=== PATIENT | female | born 1995 | race Caucasian/White ===

== ENCOUNTER → 2018-07-31 | Outpatient (CLI) | payer BC ==
[2018-07-31 11:43] LABS: Anisocytosis Slight; HCT 33.7 % (34.0-46.0); HGB 10.6 gm/dL (11.4-16.0); Hypochromasia Moderate; MCH 24.2 pg (25.0-35.0); MCHC 31.4 g/dL (31.0-37.0); MCV 77.1 fL (80.0-100.0); Mean Platelet Volume 6.8; Microcytosis Slight; Platelet Count 271 k/uL (150-450); RBC 4.37 m/uL (3.80-5.40); RDW 17.3 % (11.5-15.5); WBC 14.5 k/uL (3.8-10.6)
== END | disposition home or self-care (01) ==
LOC: LABWHC1 10:19
PROVIDERS: ATTEND Obstetrics & Gynecology
DX: Z34.82 Encounter for supervision of other normal pregnancy, second trimester (principal)
CPT/HCPCS: 36415; 82950; 85027; 86850; 86900; 86901

== ENCOUNTER 2018-09-30 16:20 | Outpatient (CLI) | payer BC ==
[2018-09-30 17:31] LABS: Anisocytosis Slight; Basophils % (A) 0 %; Eosinophils # (A) 0.2 k/uL (0-0.7); Eosinophils % (A) 1 %; HCT 32.3 % (34.0-46.0); HGB 10.2 gm/dL (11.4-16.0); Hypochromasia Slight; Lymphocytes # (A) 2.1 k/uL (1.0-4.8); Lymphocytes % (A) 15 %; MCH 24.4 pg (25.0-35.0); MCHC 31.7 g/dL (31.0-37.0); MCV 77.2 fL (80.0-100.0); Mean Platelet Volume 8.3; Microcytosis Slight; Monocytes # (A) 0.6 k/uL (0-1.0); Monocytes % (A) 4 %; Neutrophils # (A) 11.3 k/uL (1.3-7.7); Neutrophils % (A) 79 %; Platelet Count 238 k/uL (150-450); RBC 4.19 m/uL (3.80-5.40); RDW 17.3 % (11.5-15.5); WBC 14.4 k/uL (3.8-10.6)
[2018-09-30 17:35] LABS: Appearance,Urine Clear (Clear); Bacteria,Urine Rare /hpf; Bilirubin,Urine Negative (Negative); Blood,Urine Negative (Negative); Color,Urine Yellow; Glucose,Urine (UA) Negative (Negative); Ketones,Urine Negative (Negative); Leukocyte Esterase,Urine Moderate (Negative); Mucus,Urine Occasional /hpf; Nitrite,Urine Negative (Negative); Protein,Urine Trace (Negative); RBC,Urine 4 /hpf (0-5); Specific Gravity,Urine 1.028 (1.001-1.035); Squamous Epithelial Cell,Urine 3 /hpf (0-4); Urobilinogen,Urine <2.0 mg/dL (<2.0); WBC,Urine 6 /hpf (0-5)
[2018-09-30 17:43] LABS: ALT 17 U/L (9-52); AST 13 U/L (14-36); Blood Urea Nitrogen 9 mg/dL (7-17); LDH 399 U/L (313-618); Uric Acid 5.1 mg/dL (3.7-7.4)
[2018-09-30 17:50] VITALS: BP 126/77; PULSE 78; RESP 16; TEMP 97.6
--- NOTE | 2018-09-30 20:15 | P.MSEPDOC ---
Presenting Problems - Arrival Data Date of Arrival on Unit: 09/30/18 Time of Arrival on Unit: 16:16 Mode of Transport: Ambulatory - Complaint OB-Reason for Admission/Chief Complaint: PIH Medical History - Information : 2 Number of Living Children: 1 - Gestational Age Gestational Age by TRES (wks/days): 34 Weeks and 5 Days Review of Systems - Review of Systems Constitutional: No problems Breast: No problems ENT: No problems Cardiovascular: No problems Respiratory: No problems Gastrointestinal: No problems Genitourinary: No problems Musculoskeletal: No problems Neurological: No problems Skin: No problems Vital Signs - Temperature Temperature: 97.6 F Temperature Source: Temporal Artery Scan - Pulse Right Sitting Brachial Pulse Rate: 78 Pulse Assessment Method: Auscultation - Respirations Respiratory Rate: 16 Oxygen Delivery Method: Room Air - Blood Pressure Right Arm Sitting Blood Pressure: 126/77 Blood Pressure Mean: 93 Blood Pressure Source: Automatic Cuff Medical Screen Scoring (Pre) - Cervical Exam Dilation: Exam Deferred Effacement: Exam Deferred - Uterine Contractions Frequency: N/A Duration: N/A Intensity: N/A - Maternal Vital Signs Maternal Temperature: N/A Maternal Blood Pressure: N/A Signs of Preeclampsia: Headache = 1 Maternal Respirations: N/A - Pain Assessment Pain Scale Used: Numeric (1 - 10) Pain Intensity: 0 - Maternal Trauma Maternal Trauma: N/A - Assessment Baseline FHR: 130 Heart Rate - NICHD Category: Category I (Normal) = 0 NST: Reactive Position: N/A Station: N/A - Total Score Total Score (Pre): 1 - Level of Risk Level of Risk: Low (0-5) Physician Notification (Pre) - Physician Notified Physician Notified Date: 09/30/18 Physician Notified Time: 17:00 Physician/Practitioner Notifed:: dr tan Spoke With: Dr Tan New Order Received: Yes (if all lab work wnl, bp wnl, pt may be discharged home) Disposition - Disposition OB Disposition: Discharge to home Discharge Date: 09/30/18 Discharge Time: 17:50 I agree with the RN Medical Screening Exam: Yes Risk & Benefit of care provided described in d/c instruction: Yes Diagnosis: GESTATIONAL HTN W/O SIGNIFICANT PROTEINURIA, THIRD TRIMESTER (patient had an elevated blood pressure 140/90 the office. Blood pressures here have been normal and her preeclampsia labs have been normal as well with the random urine protein to creatinine ratio of 0.05. heart tones are category 1. There is no evidence of maternal or compromise and therefore the patient will be sent home follow up with me Thursday for repeat blood pressure check and nonstress test.)
== END 2018-09-30 17:50 | disposition home or self-care (01) ==
LOC: FBPOP 16:20
PROVIDERS: ATTEND Obstetrics & Gynecology
DX: O13.3 Gestational [pregnancy-induced] hypertension without significant proteinuria, third trimester (principal); Z3A.34 34 weeks gestation of pregnancy
CPT/HCPCS: 59025; 81001; 82565; 82570; 83615; 84156; 84450; 84460; 84520; 84550; 85025; 99215

== ENCOUNTER 2018-11-07 14:18 | Inpatient (IN) | payer BC ==
[2018-11-07 15:24] LABS: Anisocytosis Slight; Basophils # (A) 0.1 k/uL (0-0.2); Basophils % (A) 0 %; Eosinophils # (A) 0.3 k/uL (0-0.7); Eosinophils % (A) 2 %; HCT 36.2 % (34.0-46.0); HGB 11.1 gm/dL (11.4-16.0); Hypochromasia Moderate; Lymphocytes # (A) 2.5 k/uL (1.0-4.8); Lymphocytes % (A) 17 %; MCH 23.9 pg (25.0-35.0); MCHC 30.7 g/dL (31.0-37.0); MCV 77.8 fL (80.0-100.0); Microcytosis Slight; Monocytes # (A) 0.6 k/uL (0-1.0); Monocytes % (A) 4 %; Neutrophils # (A) 11.3 k/uL (1.3-7.7); Neutrophils % (A) 75 %; Platelet Count 210 k/uL (150-450); RBC 4.65 m/uL (3.80-5.40)
[2018-11-07 15:31] LABS: ALT 9 U/L (9-52); AST 19 U/L (14-36); African American GFR (CKD) >90 (>60 ml/min/1.73 sqM); Appearance,Urine Clear (Clear); Bacteria,Urine Rare /hpf; Bilirubin,Urine Negative (Negative); Blood Urea Nitrogen 14 mg/dL (7-17); Blood,Urine Small (Negative); Color,Urine Yellow; Glucose,Urine (UA) Negative (Negative); Ketones,Urine Negative (Negative); LDH 551 U/L (313-618); Leukocyte Esterase,Urine Trace (Negative); Mucus,Urine Rare /hpf; Nitrite,Urine Negative (Negative); Protein,Urine Trace (Negative); RBC,Urine 2 /hpf (0-5); Specific Gravity,Urine 1.027 (1.001-1.035); Squamous Epithelial Cell,Urine 2 /hpf (0-4); Uric Acid 5.7 mg/dL (3.7-7.4); Urobilinogen,Urine <2.0 mg/dL (<2.0); WBC,Urine 4 /hpf (0-5)
[2018-11-07] MEDS ORDERED: ceFAZolin IN SWFI 2 GM/20 ML SYRINGE IVP ONE (15:47)
[2018-11-07] MEDS ORDERED: CITRIC ACID-SODIUM CITRATE 15 ML CUP PO ONE (15:47)
--- NOTE | 2018-11-07 15:57 | P.HPOB ---
History of Present Illness H&P Date: 11/07/18 Chief Complaint: gestational hypertension 23 year old presents at 40 weeks 1 day complaining of headache and contractions. She is li irregularly. cervix is closed, thick, -3. heart tones 140's moderate variability and accelerations. HEr BP is 130-170/90-100. She had one previous increased BP in the . Her pre- eclamptic labs were wnl. She has gestational hypertension and is consented for repeat . Review of Systems All systems: negative Constitutional: Denies chills, Denies fever Eyes: denies blurred vision, denies pain Ears, nose, mouth and throat: Denies headache, Denies sore throat Cardiovascular: Denies chest pain, Denies shortness of breath Respiratory: Denies cough Gastrointestinal: Denies abdominal pain, Denies diarrhea, Denies nausea, Denies vomiting Genitourinary: Denies dysuria, Denies hematuria Musculoskeletal: Denies myalgias Integumentary: Denies pruritus, Denies rash Neurological: Denies numbness, Denies weakness Psychiatric: Denies anxiety, Denies depression Endocrine: Denies fatigue, Denies weight change Past Medical History Past Medical History: No Reported History Additional Past Medical History / Comment(s): OB history: first was a for failure of induction for pre-eclampsia at 37 weeks 5 days. This is her second and she has had care with DR Tan. O+, abs neg, Rub Imm, RPR NR, Hep B neg, HIV NR. GBS neg. History of Any Multi-Drug Resistant Organisms: None Reported Past Surgical History: Section Past Anesthesia/Blood Transfusion Reactions: No Reported Reaction Smoking Status: Never smoker - Past Family History Mother Family Medical History: No Reported History Medications and Allergies Home Medications Medication Instructions Recorded Confirmed Type Ferrous Sulfate [Iron] 325 mg PO DAILY 09/30/18 11/07/18 History Pnv No.95/Ferrous Fum/Folic AC 1 each PO DAILY 09/30/18 11/07/18 History [ Multivitamin Tablet] Allergies Allergy/AdvReac Type Severity Reaction Status Date / Time No Known Allergies Allergy Verified 11/07/18 14:34 Exam Osteopathic Statement: *. No significant issues noted on an osteopathic structural exam other than those noted in the History and Physical/Consult. Vital Signs Temp Pulse Resp BP 11/07/18 14:57 97.1 F L 74 16 141/100 Intake and Output 11/07/18 11/07/18 11/07/18 06:59 14:59 22:59 Other: Weight 88.133 kg HEart: RRR Lungs: CTAB Abdomen: soft, nontender Extremeties: neg lita's Results Result Diagrams: 11/07/18 15:13 11/07/18 15:13 Abnormal Lab Results - Last 24 Hours (Table) 11/07/18 11/07/18 11/07/18 Range/Units 15:13 15:13 15:13 WBC 15.0 H (3.8-10.6) k/uL Hgb 11.1 L (11.4-16.0) gm/dL MCV 77.8 L (80.0-100.0) fL MCH 23.9 L (25.0-35.0) pg MCHC 30.7 L (31.0-37.0) g/dL RDW 18.0 H (11.5-15.5) % Neutrophils # 11.3 H (1.3-7.7) k/uL Creatinine 0.45 L (0.52-1.04) mg/dL Urine Protein Trace H (Negative) Urine Blood Small H (Negative) Ur Leukocyte Esterase Trace H (Negative) Urine Bacteria Rare H (None) /hpf Urine Mucus Rare H (None) /hpf Assessment and Plan (1) Gestational hypertension Current Visit: Yes Status: Acute Code(s): O13.9 - GESTATIONAL HTN W/O SIGNIFICANT PROTEINURIA, UNSP TRIMESTER SNOMED Code(s): 724882491 (2) History of pre-eclampsia in prior , currently Current Visit: Yes Status: Acute Code(s): O09.299 - SUPRVSN OF PREG W POOR REPRODCTV OR OBSTET HISTORY, UNSP TRI SNOMED Code(s): 878059136998813 (3) Postmaturity , 40-42 weeks gestation Current Visit: Yes Status: Acute Code(s): O48.0 - POST-TERM SNOMED Code(s): 55633764852617 Plan: 1. repeat low transverse
--- NOTE | 2018-11-07 15:58 | P.MSEPDOC ---
Presenting Problems - Arrival Data Date of Arrival on Unit: 11/07/18 Time of Arrival on Unit: 14:18 Mode of Transport: Ambulatory - Complaint OB-Reason for Admission/Chief Complaint: Possible Onset of Labor Medical History - Information : 2 Para: 1 Term: 1 : 0 Abortions: Spontaneous or Elective: 0 Number of Living Children: 1 - Gestational Age Gestational Age by TRES (wks/days): 40 Weeks and 1 Days - History Complications: Prior Comment: hx of preeclampsia with previous delivery Review of Systems - Review of Systems Constitutional: No problems Breast: No problems ENT: No problems Cardiovascular: No problems Respiratory: No problems Gastrointestinal: No problems Genitourinary: No problems Musculoskeletal: No problems Neurological: No problems Skin: No problems Vital Signs - Temperature Temperature: 97.1 F Temperature Source: Temporal Artery Scan - Pulse Right Sitting Pulse Rate: 74 Pulse Assessment Method: Automatic Cuff - Respirations Respiratory Rate: 16 Oxygen Delivery Method: Room Air - Blood Pressure Right Arm Blood Pressure: 141/100 Blood Pressure Mean: 113 Blood Pressure Source: Automatic Cuff Medical Screen Scoring (Pre) - Cervical Exam Dilation: Exam Deferred Effacement: Exam Deferred Membranes: Intact - Uterine Contractions Frequency: > 5 minutes apart = 1 Duration: > 40 seconds = 2 Intensity: N/A - Maternal Vital Signs Maternal Temperature: N/A Maternal Blood Pressure: Systolic >139 = 2 Signs of Preeclampsia: Headache = 1 Maternal Respirations: N/A - Maternal Trauma Maternal Trauma: N/A - Assessment - Baby A Baseline FHR: 120 Heart Rate - NICHD Category: Category I (Normal) = 0 NST: Reactive Position: N/A Station: N/A - Total Score - Baby A Total Score - Baby A: 6 - Total Score - Baby B Total Score - Baby B: 6 - Total Score - Baby C Total Score - Baby C: 6 - Level of Risk - Baby A Level of Risk - Baby A: Medium (6-9) - Level of Risk - Baby B Level of Risk - Baby B: Medium (6-9) - Level of Risk - Baby C Level of Risk - Baby C: Medium (6-9) Physician Notification (Pre) - Physician Notified Physician Notified Date: 11/07/18 Physician Notified Time: 14:57 Physician/Practitioner Notifed:: Doug Ruby Order Received: Yes (ASHLYN núñez) Disposition - Disposition OB Disposition: Admit I agree with the RN Medical Screening Exam: Yes Risk & Benefit of care provided described in d/c instruction: Yes Diagnosis: GESTATIONAL HTN W/O SIGNIFICANT PROTEINURIA, THIRD TRIMESTER
[2018-11-07 16:03] LABS: INR 0.9 (<1.2); Partial Thromboplastin Time 22.9 sec (22.0-30.0); Prothrombin Time 9.4 sec (9.0-12.0)
[2018-11-07] MEDS: LACTATED RINGERS 1,000 ML IV SCH (16:22)
[2018-11-07 16:40] VITALS: BMI 42.0
[2018-11-07] MEDS ORDERED: OXYTOCIN 10 UNIT/ML 1 ML VIAL ONE (16:45)
[2018-11-07] MEDS ORDERED: MORPHINE SULFATE (PF) 0.3 MG/0.3 ML SYR ONE (16:45)
[2018-11-07] MEDS ORDERED: fentaNYL (PF) 50 MCG/ML 2 ML AMP ONE (16:45)
[2018-11-07] MEDS ORDERED: ONDANSETRON 4 MG/2 ML VIAL ONE (16:45)
[2018-11-07] MEDS ORDERED: KETOROLAC 30 MG/ML 1 ML VIAL ONE (16:45)
[2018-11-07] MEDS ORDERED: METOCLOPRAMIDE 5 MG/ML 2 ML VIAL IVP PRN (17:26)
[2018-11-07] MEDS ORDERED: NALOXONE 0.4 MG/ML 1 ML VIAL IV PRN (17:26)
[2018-11-07] MEDS ORDERED: ONDANSETRON 4 MG/2 ML VIAL IVP PRN (17:26)
[2018-11-07] MEDS ORDERED: ZOLPIDEM 5 MG TAB PO PRN (17:26)
[2018-11-07] MEDS ORDERED: diphenhydrAMINE 25 MG CAP PO PRN (17:26)
[2018-11-07] MEDS ORDERED: ACETAMINOPHEN TAB 325 MG TAB PO PRN (17:26)
[2018-11-07] MEDS ORDERED: diphenhydrAMINE 50 MG CAP PO PRN (17:26)
[2018-11-07] MEDS ORDERED: LANOLIN CREAM 5 GM TUBE TOPICAL PRN (17:26)
[2018-11-07] MEDS ORDERED: diphenhydrAMINE 50 MG/ML 1 ML VIAL IVP PRN (17:26)
[2018-11-07] MEDS ORDERED: SIMETHICONE 80 MG CHEWABLE PO PRN (17:26)
--- NOTE | 2018-11-07 17:29 | P.OP ---
Date of Procedure: 11/07/18 Preoperative Diagnosis: 1. at 40 weeks 1 day 2. gestational hypertension 3. previous Postoperative Diagnosis: 1. at 40 weeks 1 day 2. gestational hypertension 3. previous Procedure(s) Performed: repeat low transverse Anesthesia: spinal Surgeon: Génesis Camacho Temporary Receptionist #1: Jaky Patino Estimated Blood Loss (ml): 400 IV fluids (ml): 600 Urine output (ml): 150 Pathology: other (placenta) Condition: stable Disposition: floor Operative Findings: Viable female, Apgars 8, 9, weight 5 lbs. 10 oz. Normal uterus, tubes, ovaries. Description of Procedure: Patient was taken to the operating room where spinal anesthesia was found be adequate. She was prepped and draped in normal sterile fashion in dorsal supine position with a leftward tilt. Pfannenstiel skin incision was made the scalpel and carried through to the underlying layer of fascia with the scalpel. Fascia was incised in midline and carried bilaterally with the Morgan scissors. The superior aspect of the fascial incision was grasped with Franny clamps elevated and the underlying rectus muscles dissected off with the Morgan's. Attention was then turned to inferior aspect of same incision which in a similar fashion was grasped tented up and the underlying rectus muscles dissected off with the Morgan's. The rectus muscles were the midline and the peritoneum was i dentified tented up and entered sharply with the scalpel. The incision was extended superiorly and inferiorly with good visualization of the bladder. The bladder blade was inserted and the vesicouterine peritoneum was incised the Metzenbaums then carried bilaterally and bladder flap created digitally. A low transverse incision was then made on the uterus with the scalpel. This was carried bilaterally and digital manner. Infant's head delivered atraumatically, nose and mouth bulb suctioned, cord clamped and cut, infant handed off to waiting nurses. Apgars 8,9, weight 5 lbs. 10 oz. Placenta delivered manually, intact with three-vessel cord. The uterus is exteriorized and cleared of all clots and debris. The uterine incision was closed with 0 Vicryl in a running locked fashion. Second layer of the same sutures used in imbricating fashion to obtain excellent hemostasis. Bladder flap was then reapproximated using 2-0 Vicryl in a running fashion. Both ovaries and tubes appeared normal. The uterus was placed back into the abdomen. The peritoneum was reapproximated using 2-0 Vicryl in a running fashion. The muscles were reapproximated using 2- 0 Vicryl in interrupted fashion. The fascia was reapproximated using 0 Vicryl in a running fashion. The subcutaneous tissues closed with 3-0 Vicryl running fashion. The skin was closed tony. Patient tolerated the procedure well, sponge and instrument counts were correct times 2 and she was taken to the recovery room in stable condition.
[2018-11-07] MEDS ORDERED: OXYTOCIN 20 UNITS/1000 ML NS 1,000 ML IV SCH (17:30)
[2018-11-07] MEDS: diphenhydrAMINE 50 MG/ML 1 ML VIAL IVP PRN (21:09)
[2018-11-07] MEDS: SENNOSIDES-DOCUSATE SODIUM 1 EACH TAB PO SCH (22:44)
[2018-11-08] MEDS: LACTATED RINGERS 1,000 ML IV SCH (01:00)
[2018-11-08] MEDS: KETOROLAC 30 MG/ML 1 ML VIAL IVP PRN ×4 (02:29→21:22)
[2018-11-08] MEDS: diphenhydrAMINE 50 MG/ML 1 ML VIAL IVP PRN (03:50)
--- NOTE | 2018-11-08 06:13 | P.PNOBGPC ---
Subjective - Subjective Patient reports: Reports appetite normal, Reports voiding normally, Reports pain well controlled, Reports ambulating normally : doing well Objective - Vital Signs Latest vital signs: Vital Signs Temp Pulse Resp BP Pulse Ox 11/08/18 03:52 97.6 F 87 16 152/96 98 11/08/18 00:00 97.7 F 62 16 132/85 97 11/07/18 19:31 97.1 F L 63 16 149/86 98 11/07/18 19:00 57 L 16 161/96 99 11/07/18 18:31 63 16 157/94 99 11/07/18 18:16 60 16 153/91 98 11/07/18 18:01 60 16 127/79 97 11/07/18 17:46 64 16 128/81 98 11/07/18 17:31 97.3 F L 68 16 123/75 96 11/07/18 15:57 97.1 F L 74 16 141/100 11/07/18 14:57 97.1 F L 74 16 141/100 Intake and Output 11/07/18 11/07/18 11/08/18 14:59 22:59 06:59 Output Total 1500 Balance -1500 Output: Urine 1500 Uretheral ([place]) 500 Other: # Voids 0 # Emeses 1 Weight 88.133 kg - Exam Lungs: bilateral: normal Chest: Normal S1, Normal S2 Extremities: Present: normal Abdomen: Present: normal appearance, soft. Absent: distention, tenderness Incision: Present: normal, dry, intact Uterus: Present: normal, firm - Labs Labs: Abnormal Lab Results - Last 24 Hours (Table) 11/07/18 11/07/18 11/07/18 Range/Units 15:13 15:13 15:13 WBC 15.0 H (3.8-10.6) k/uL Hgb 11.1 L (11.4-16.0) gm/dL MCV 77.8 L (80.0-100.0) fL MCH 23.9 L (25.0-35.0) pg MCHC 30.7 L (31.0-37.0) g/dL RDW 18.0 H (11.5-15.5) % Neutrophils # 11.3 H (1.3-7.7) k/uL Creatinine 0.45 L (0.52-1.04) mg/dL Urine Protein Trace H (Negative) Urine Blood Small H (Negative) Ur Leukocyte Esterase Trace H (Negative) Urine Bacteria Rare H (None) /hpf Urine Mucus Rare H (None) /hpf Assessment and Plan Assessment: Post operative day #1. Patient is resting without new complaints. Blood pressures remain elevated and therefore I'm going to place her on labetalol at this time. Incision is intact and dry. CBC is pending at this time. Plan today is to ambulate, allow the patient to shower, advance her diet, check a CBC, and began oral labetalol. We will continue otherwise routine postoperative care. (1) Gestational hypertension Current Visit: Yes Status: Acute Code(s): O13.9 - GESTATIONAL HTN W/O SIGNIFICANT PROTEINURIA, UNSP TRIMESTER SNOMED Code(s): 442429452 (2) delivery delivered Current Visit: Yes Status: Acute Code(s): O82 - ENCOUNTER FOR DELIVERY WITHOUT INDICATION SNOMED Code(s): 969465639
[2018-11-08 07:02] LABS: Anisocytosis Slight; Basophils % (A) 0 %; Eosinophils # (A) 0.1 k/uL (0-0.7); Eosinophils % (A) 1 %; HCT 31.2 % (34.0-46.0); HGB 9.8 gm/dL (11.4-16.0); Hypochromasia Moderate; Lymphocytes % (A) 14 %; MCH 24.1 pg (25.0-35.0); MCHC 31.4 g/dL (31.0-37.0); MCV 76.8 fL (80.0-100.0); Mean Platelet Volume 8.4; Microcytosis Slight; Monocytes # (A) 0.5 k/uL (0-1.0); Monocytes % (A) 4 %; Neutrophils # (A) 11.5 k/uL (1.3-7.7); Neutrophils % (A) 80 %; Platelet Count 173 k/uL (150-450); RBC 4.06 m/uL (3.80-5.40); RDW 17.7 % (11.5-15.5); WBC 14.4 k/uL (3.8-10.6)
[2018-11-08] MEDS: SENNOSIDES-DOCUSATE SODIUM 1 EACH TAB PO SCH ×2 (07:58→19:57)
[2018-11-08] MEDS: LABETALOL 100 MG TAB PO SCH ×2 (07:59→21:23)
--- NOTE | 2018-11-08 11:55 | P.PN ---
Progress Note - Text Date:11/05 Time:650am Patient is status post . Patient seen this morning with VAS score of 2. c/o of pruritus, no c/o nausea/vomiting, comfortable and doing well.
[2018-11-08] MEDS: HYDROcodone/APAP 7.5-325MG 1 EACH TAB PO PRN (23:41)
[2018-11-09] MEDS: IBUPROFEN 600 MG TAB PO PRN ×3 (04:10→21:33)
--- NOTE | 2018-11-09 06:24 | P.PNOBGPC ---
Subjective - Subjective Patient reports: Reports appetite normal, Reports voiding normally, Reports pain well controlled, Reports ambulating normally : doing well Objective - Vital Signs Latest vital signs: Vital Signs Temp Pulse Resp BP Pulse Ox 11/08/18 23:52 98.2 F 74 18 136/76 100 11/08/18 20:00 70 136/86 100 11/08/18 16:00 98.5 F 92 14 119/52 11/08/18 12:00 98.2 F 81 16 111/54 11/08/18 08:00 98.2 F 76 16 120/69 Intake and Output 11/08/18 11/08/18 11/09/18 14:59 22:59 06:59 Output Total 800 Balance -800 Output: Urine 800 Other: # Voids 2 2 - Exam Lungs: bilateral: normal Chest: Normal S1, Normal S2 Extremities: Present: normal Abdomen: Present: normal appearance, soft. Absent: distention, tenderness Incision: Present: normal, dry, intact Uterus: Present: normal, firm - Labs Labs: Abnormal Lab Results - Last 24 Hours (Table) 11/08/18 Range/Units 06:39 WBC 14.4 H (3.8-10.6) k/uL Hgb 9.8 L (11.4-16.0) gm/dL Hct 31.2 L (34.0-46.0) % MCV 76.8 L (80.0-100.0) fL MCH 24.1 L (25.0-35.0) pg RDW 17.7 H (11.5-15.5) % Neutrophils # 11.5 H (1.3-7.7) k/uL Assessment and Plan Assessment: Postoperative day #2. Patient is resting without new complaints. Blood pressures are good on labetalol. Incision is intact and dry. CBC yesterday was normal. Plan today is to continue routine postoperative care. Plan on discharge tomorrow. (1) Gestational hypertension Current Visit: Yes Status: Acute Code(s): O13.9 - GESTATIONAL HTN W/O SIGNIFICANT PROTEINURIA, UNSP TRIMESTER SNOMED Code(s): 453960477 (2) delivery delivered Current Visit: Yes Status: Acute Code(s): O82 - ENCOUNTER FOR DELIVERY WITHOUT INDICATION SNOMED Code(s): 361617712
[2018-11-09] MEDS: LABETALOL 100 MG TAB PO SCH ×2 (07:55→21:30)
[2018-11-09] MEDS: SENNOSIDES-DOCUSATE SODIUM 1 EACH TAB PO SCH ×2 (12:54→21:30)
[2018-11-10] MEDS: IBUPROFEN 600 MG TAB PO PRN (04:36)
[2018-11-10 04:46] VITALS: RESP 16
--- NOTE | 2018-11-10 06:25 | P.PNOBGPC ---
Subjective - Subjective Patient reports: Reports appetite normal, Reports voiding normally, Reports pain well controlled, Reports ambulating normally : doing well Objective - Vital Signs Latest vital signs: Vital Signs Temp Pulse Resp BP Pulse Ox 11/10/18 04:45 79 16 151/80 98 11/09/18 21:36 18 148/68 11/09/18 16:00 98.1 F 93 16 134/88 11/09/18 08:00 98.1 F 86 16 137/76 - Exam Lungs: bilateral: normal Chest: Normal S1, Normal S2 Extremities: Present: normal Abdomen: Present: normal appearance, soft. Absent: distention, tenderness Incision: Present: normal, dry, intact Uterus: Present: normal, firm Assessment and Plan Assessment: Postoperative day #3. Patient is resting without new complaints. Vital signs are stable she is afebrile. Blood pressure is okay on oral labetalol she will continue this at home. Incision is intact and dry. Plan today is to continue routine postoperative care discharge home. (1) Gestational hypertension Current Visit: Yes Status: Acute Code(s): O13.9 - GESTATIONAL HTN W/O SIGNIFICANT PROTEINURIA, UNSP TRIMESTER SNOMED Code(s): 109272036 (2) delivery delivered Current Visit: Yes Status: Acute Code(s): O82 - ENCOUNTER FOR DELIVERY WITHOUT INDICATION SNOMED Code(s): 798093924
--- NOTE | 2018-11-10 06:34 | P.DS ---
Providers Date of admission: 11/07/18 15:52 Expected date of discharge: 11/10/18 Attending physician: Anirudh Tan Primary care physician: Stated None - Discharge Diagnosis(es) (1) Gestational hypertension Current Visit: Yes Status: Acute (2) delivery delivered Current Visit: Yes Status: Acute Hospital Course: Please see dictated H&P for intimate details of this patient's admission. Brief summary is a pleasant 23-year-old 2 para 1 female who was 40 and one sevenths weeks gestation who is admitted to labor and delivery with complaints of headaches found to have gestational hypertension. Patient subsequently on a repeat low transverse section for viable female infant. Please see dictated delivery note. Postoperative placed on oral labetalol blood pressures did come down well. Postoperative 3 patient's felt be stable for discharge home follow up with me in 1 week for blood pressure check. Procedures: Repeat low transverse section Patient Condition at Discharge: Good Plan - Discharge Summary New Discharge Prescriptions: New Ibuprofen [Motrin] 600 mg PO Q6HR PRN #40 tab PRN Reason: Mild Pain Or Fever >= 100.5 HYDROcodone/APAP 7.5-325MG [[place] 7.5-325] 1 each PO Q4H PRN #18 tab PRN Reason: Severe Pain Labetalol [Trandate] 100 mg PO BID #60 tab No Action Pnv No.95/Ferrous Fum/Folic AC [ Multivitamin Tablet] 1 each PO DAILY Ferrous Sulfate [Iron] 325 mg PO DAILY Discharge Medication List Ferrous Sulfate [Iron] 325 mg PO DAILY 09/30/18 [History] Pnv No.95/Ferrous Fum/Folic AC [ Multivitamin Tablet] 1 each PO DAILY 09/30/18 [History] HYDROcodone/APAP 7.5-325MG [[place] 7.5-325] 1 each PO Q4H PRN #18 tab 11/10/18 [Rx] Ibuprofen [Motrin] 600 mg PO Q6HR PRN #40 tab 11/10/18 [Rx] Labetalol [Trandate] 100 mg PO BID #60 tab 11/10/18 [Rx] Follow up Appointment(s)/Referral(s): Anirudh Tan MD [STAFF PHYSICIAN] - 11/22/18 8:45 am (Patient also has a appointment on December 21 at 10:45 AM.) Patient Instructions/Handouts: (DC) Activity/Diet/Wound Care/Special Instructions: No heavy lifting or strenuous activities for 6 weeks. Please call if any fever, chills, excessive vaginal bleeding and/or abdominal pain. Please take blood pressure medication as instructed. Discharge Disposition: HOME SELF-CARE
[2018-11-10 07:54] VITALS: PULSE 89; TEMP 98.3
[2018-11-10] MEDS: LABETALOL 100 MG TAB PO SCH (08:04)
[2018-11-10] MEDS: HYDROcodone/APAP 7.5-325MG 1 EACH TAB PO PRN (08:04)
[2018-11-10 09:23] VITALS: BP 137/76
[2018-11-10] MEDS: SENNOSIDES-DOCUSATE SODIUM 1 EACH TAB PO SCH (09:23)
== END 2018-11-10 12:29 | disposition home or self-care (01) | DRG 788 ==
LOC: FBPOP 14:18 → 4FBP 15:52
PROVIDERS: ADMIT Obstetrics & Gynecology; ATTEND Obstetrics & Gynecology
PROC: 10D00Z1 Extraction of Products of Conception, Low, Open Approach (ICD-10-PCS; principal; 2018-11-07 17:00)
DX: O13.4 Gestational [pregnancy-induced] hypertension without significant proteinuria, complicating childbirth (principal); O34.211 Maternal care for low transverse scar from previous cesarean delivery; O48.0 Post-term pregnancy; Z37.0 Single live birth; Z3A.40 40 weeks gestation of pregnancy; Z87.59 Personal history of other complications of pregnancy, childbirth and the puerperium
CPT/HCPCS: 59025; 81001; 82565; 82570; 83615; 84156; 84450; 84460; 84520; 84550; 85025; 85610; 85730; 86850; 86900; 86901; 88307; 99213

== ENCOUNTER 2020-12-05 00:44 | Emergency (ER) | payer BC ==
[2020-12-05] MEDS ORDERED: SODIUM CHLORIDE 0.9% 1,000 ML IV ONE (01:03)
[2020-12-05] MEDS ORDERED: ACETAMINOPHEN TAB 500 MG TAB PO STA (01:03)
[2020-12-05] MEDS ORDERED: KETOROLAC 15 MG/ML 1 ML VIAL IVP STA (01:03)
[2020-12-05 01:48] LABS: Basophils # (A) 0.1 k/uL (0-0.2); Basophils % (A) 0 %; Eosinophils # (A) 0.1 k/uL (0-0.7); Eosinophils % (A) 0 %; HCT 35.7 % (34.0-46.0); HGB 12.3 gm/dL (11.4-16.0); Lymphocytes # (A) 2.2 k/uL (1.0-4.8); Lymphocytes % (A) 15 %; MCH 25.8 pg (25.0-35.0); MCHC 34.4 g/dL (31.0-37.0); MCV 75.1 fL (80.0-100.0); Mean Platelet Volume 7.3; Microcytosis Slight; Monocytes # (A) 0.8 k/uL (0-1.0); Monocytes % (A) 5 %; Neutrophils # (A) 11.6 k/uL (1.3-7.7); Neutrophils % (A) 79 %; Platelet Count 248 k/uL (150-450); RBC 4.76 m/uL (3.80-5.40); RDW 15.4 % (11.5-15.5); WBC 14.7 k/uL (3.8-10.6)
[2020-12-05 01:56] LABS: Appearance,Urine Cloudy (Clear); Bacteria,Urine Few /hpf; Bilirubin,Urine Negative (Negative); Blood,Urine Moderate (Negative); Color,Urine Yellow; Glucose,Urine (UA) Negative (Negative); Ketones,Urine Negative (Negative); Leukocyte Esterase,Urine Large (Negative); Mucus,Urine Occasional /hpf; Nitrite,Urine Negative (Negative); PH, Urine 5.5 (5.0-8.0); Protein,Urine 1+ (Negative); RBC,Urine 73 /hpf (0-5); Specific Gravity,Urine 1.013 (1.001-1.035); Squamous Epithelial Cell,Urine 2 /hpf (0-4); Urobilinogen,Urine <2.0 mg/dL (<2.0); WBC,Urine >182 /hpf (0-5)
[2020-12-05 02:11] LABS: ALT 16 U/L (4-34); AST 19 U/L (14-36); African American GFR (CKD) >90 (>60 ml/min/1.73 sqM); Albumin 4.1 g/dL (3.5-5.0); Alkaline Phosphatase 76 U/L (38-126); Anion Gap 10 mmol/L; Blood Urea Nitrogen 10 mg/dL (7-17); Calcium 9.2 mg/dL (8.4-10.2); Carbon Dioxide 22 mmol/L (22-30); Chloride 107 mmol/L (98-107); Glucose 125 mg/dL (74-99); Non-African American GFR(CKD) >90 (>60 ml/min/1.73 sqM); Potassium 4.4 mmol/L (3.5-5.1); Sodium 139 mmol/L (137-145); Total Bilirubin 0.6 mg/dL (0.2-1.3)
[2020-12-05] MEDS ORDERED: cefTRIAXone IN SWFI 1,000 MG/10 ML SYRINGE IVP STA (02:13)
--- NOTE | 2020-12-05 02:14 | ED ---
General Adult HPI - General Chief complaint: Back Pain/Injury Stated complaint: lower back pain, fever Time Seen by Provider: 12/05/20 00:50 Source: patient Mode of arrival: ambulatory Limitations: no limitations - History of Present Illness Initial comments: 25 year-old female patient presents to the emergency department for evaluation of low back pain and fever. States she was diagnosed with a UTI at her primary care physician's office today, but did not start the antibiotics. States that low back pain started yesterday in the evening. States she developed fever tonight. Denies any abnormal vaginal bleeding or discharge. Denies chance of . Denies history of frequent UTI. Patient denies any recent rash, cough, shortness of breath, chest pain, nausea, vomiting, diarrhea, constipation, numbness, tingling, dizziness, weakness, headache, visual changes, or any other complaints. - Related Data Home Medications Medication Instructions Recorded Confirmed Ferrous Sulfate [Iron] 325 mg PO DAILY 09/30/18 11/07/18 Pnv No.95/Ferrous Fum/Folic AC 1 each PO DAILY 09/30/18 11/07/18 [ Multivitamin Tablet] Previous Rx's Medication Instructions Recorded HYDROcodone/APAP 7.5-325MG [Cohoes 1 each PO Q4H PRN #18 tab 11/10/18 7.5-325] Ibuprofen [Motrin] 600 mg PO Q6HR PRN #40 tab 11/10/18 Labetalol [Trandate] 100 mg PO BID #60 tab 11/10/18 Cephalexin [Keflex] 500 mg PO Q6H #40 cap 12/05/20 Allergies Allergy/AdvReac Type Severity Reaction Status Date / Time No Known Allergies Allergy Verified 12/05/20 00:48 Review of Systems ROS Statement: Those systems with pertinent positive or pertinent negative responses have been documented in the HPI. ROS Other: All systems not noted in ROS Statement are negative. Past Medical History Past Medical History: No Reported History Additional Past Medical History / Comment(s): OB history: first was a for failure of induction for pre-eclampsia at 37 weeks 5 days. This is her second and she has had care with DR Tan. O+, abs neg, Rub Imm, RPR NR, Hep B neg, HIV NR. GBS neg. History of Any Multi-Drug Resistant Organisms: None Reported Past Surgical History: Section Past Anesthesia/Blood Transfusion Reactions: No Reported Reaction Past Psychological History: No Psychological Hx Reported Smoking Status: Never smoker Past Alcohol Use History: Occasional Past Drug Use History: None Reported - Past Family History Mother Family Medical History: No Reported History General Exam Limitations: no limitations General appearance: alert, in no apparent distress, other (Physical well-develop ed, well-nourished adult female patient in no acute distress. Vital signs upon presentation are temperature 99.2F, pulse 118, respirations 20, blood pressure 116/62, pulse ox 100% on room air.) ENT exam: Present: normal exam, normal oropharynx, mucous membranes moist Respiratory exam: Present: normal lung sounds bilaterally. Absent: respiratory distress, wheezes, rales, rhonchi, stridor Cardiovascular Exam: Present: regular rate, normal rhythm, normal heart sounds. Absent: systolic murmur, diastolic murmur, rubs, gallop, clicks GI/Abdominal exam: Present: soft, normal bowel sounds. Absent: distended, tenderness, guarding, rebound, rigid Back exam: Present: normal inspection, CVA tenderness (R), CVA tenderness (L) Neurological exam: Present: alert, oriented X3, CN II-XII intact Psychiatric exam: Present: normal affect, normal mood Skin exam: Present: warm, dry, intact, normal color. Absent: rash Course Vital Signs 12/05/20 00:46 Temperature 99.2 F Pulse Rate 118 H Respiratory 20 Rate Blood Pressure 116/62 O2 Sat by Pulse 100 Oximetry Medical Decision Making - Medical Decision Making 25-year-old female patient presents for evaluation of back pain and fever. Patient was diagnosed with UTI by her primary care doctor earlier today did not start antibiotics. Labs reviewed and did reveal white blood cell count of 14.7. Urinalysis shows cloudy appearance with 1+ protein, moderate blood, large leukocyte esterase, 73 red blood cells, greater than 182 white blood cells, few white blood cell clumps, few bacteria, and occasional mucous. She is not . She is given IV fluids, Toradol, Tylenol. Upon reevaluation she is resting comfortably in bed. She'll be discharged with prescription for antibiotics. Rocephin here in the emergency department. She is instructed to follow-up with the primary care physician for recheck in 1-2 days. Return hank eters were discussed in detail. She verbalizes understanding and agrees with this plan. Case discussed with my attending Dr. Robles. - Lab Data Result diagrams: 12/05/20 01:40 12/05/20 01:40 Lab Results 12/05/20 12/05/20 12/05/20 Range/Units 01:40 01:40 01:40 WBC 14.7 H (3.8-10.6) k/uL RBC 4.76 (3.80-5.40) m/uL Hgb 12.3 (11.4-16.0) gm/dL Hct 35.7 (34.0-46.0) % MCV 75.1 L (80.0-100.0) fL MCH 25.8 (25.0-35.0) pg MCHC 34.4 (31.0-37.0) g/dL RDW 15.4 (11.5-15.5) % Plt Count 248 (150-450) k/uL MPV 7.3 Neutrophils % 79 % Lymphocytes % 15 % Monocytes % 5 % Eosinophils % 0 % Basophils % 0 % Neutrophils # 11.6 H (1.3-7.7) k/uL Lymphocytes # 2.2 (1.0-4.8) k/uL Monocytes # 0.8 (0-1.0) k/uL Eosinophils # 0.1 (0-0.7) k/uL Basophils # 0.1 (0-0.2) k/uL Microcytosis Slight Sodium (137-145) mmol/L Potassium (3.5-5.1) mmol/L Chloride (98-107) mmol/L Carbon Dioxide (22-30) mmol/L Anion Gap mmol/L BUN (7-17) mg/dL Creatinine (0.52-1.04) mg/dL Est GFR (CKD-EPI)AfAm (>60 ml/min/1.73 sqM) Est GFR (CKD-EPI)NonAf (>60 ml/min/1.73 sqM) Glucose (74-99) mg/dL Calcium (8.4-10.2) mg/dL Total Bilirubin (0.2-1.3) mg/dL AST (14-36) U/L ALT (4-34) U/L Alkaline Phosphatase (38-126) U/L Total Protein (6.3-8.2) g/dL Albumin (3.5-5.0) g/dL Urine Color Yellow Urine Appearance Cloudy H (Clear) Urine pH 5.5 (5.0-8.0) Ur Specific [place] 1.013 (1.001-1.035) Urine Protein 1+ H (Negative) Urine Glucose (UA) Negative (Negative) Urine Ketones Negative (Negative) Urine Blood Moderate H (Negative) Urine Nitrite Negative (Negative) Urine Bilirubin Negative (Negative) Urine Urobilinogen <2.0 (<2.0) mg/dL Ur Leukocyte Esterase Large H (Negative) Urine RBC 73 H (0-5) /hpf Urine WBC >182 H (0-5) /hpf Urine WBC Clumps Few H (None) /hpf Ur Squamous Epith Cells 2 (0-4) /hpf Urine Bacteria Few H (None) /hpf Urine Mucus Occasional H (None) /hpf Urine HCG, Qual Not Detected (Not Detectd) 12/05/20 Range/Units 01:40 WBC (3.8-10.6) k/uL RBC (3.80-5.40) m/uL Hgb (11.4-16.0) gm/dL Hct (34.0-46.0) % MCV (80.0-100.0) fL MCH (25.0-35.0) pg MCHC (31.0-37.0) g/dL RDW (11.5-15.5) % Plt Count (150-450) k/uL MPV Neutrophils % % Lymphocytes % % Monocytes % % Eosinophils % % Basophils % % Neutrophils # (1.3-7.7) k/uL Lymphocytes # (1.0-4.8) k/uL Monocytes # (0-1.0) k/uL Eosinophils # (0-0.7) k/uL Basophils # (0-0.2) k/uL Microcytosis Sodium 139 (137-145) mmol/L Potassium 4.4 (3.5-5.1) mmol/L Chloride 107 (98-107) mmol/L Carbon Dioxide 22 (22-30) mmol/L Anion Gap 10 mmol/L BUN 10 (7-17) mg/dL Creatinine 0.66 (0.52-1.04) mg/dL Est GFR (CKD-EPI)AfAm >90 (>60 ml/min/1.73 sqM) Est GFR (CKD-EPI)NonAf >90 (>60 ml/min/1.73 sqM) Glucose 125 H (74-99) mg/dL Calcium 9.2 (8.4-10.2) mg/dL Total Bilirubin 0.6 (0.2-1.3) mg/dL AST 19 (14-36) U/L ALT 16 (4-34) U/L Alkaline Phosphatase 76 (38-126) U/L Total Protein 7.0 (6.3-8.2) g/dL Albumin 4.1 (3.5-5.0) g/dL Urine Color Urine Appearance (Clear) Urine pH (5.0-8.0) Ur Specific [place] (1.001-1.035) Urine Protein (Negative) Urine Glucose (UA) (Negative) Urine Ketones (Negative) Urine Blood (Negative) Urine Nitrite (Negative) Urine Bilirubin (Negative) Urine Urobilinogen (<2.0) mg/dL Ur Leukocyte Esterase (Negative) Urine RBC (0-5) /hpf Urine WBC (0-5) /hpf Urine WBC Clumps (None) /hpf Ur Squamous Epith Cells (0-4) /hpf Urine Bacteria (None) /hpf Urine Mucus (None) /hpf Urine HCG, Qual (Not Detectd) Disposition Clinical Impression: Pyelonephritis Disposition: HOME SELF-CARE Condition: Good Instructions (If sedation given, give patient instructions): Kidney Infection (ED) Additional Instructions: Complete antibiotic prescriptions in full. Follow-up with your primary care physician for recheck in 1-2 days. Return for any new, worsening, or concerning symptoms. Prescriptions: Cephalexin [Keflex] 500 mg PO Q6H #40 cap Is patient prescribed a controlled substance at d/c from ED?: No Referrals: Ryder Martell DO [Primary Care Provider] - 1-2 days Time of Disposition: 02:13
[2020-12-05 02:54] VITALS: BP 110/63; PULSE 90; RESP 16; TEMP 99.1
== END 2020-12-05 03:08 | disposition home or self-care (01) ==
LOC: EC 00:44
DX: N12 Tubulo-interstitial nephritis, not specified as acute or chronic (principal)
CPT/HCPCS: 36415; 80053; 85025; 81001; 81025; 87086; 99283; 96374; 96375; 96361; J0696; J1885

== ENCOUNTER 2021-10-27 15:03 | Emergency (ER) | payer BC ==
[2021-10-27 15:11] VITALS: BP 132/81; PULSE 79; RESP 16; TEMP 97.5
[2021-10-27] MEDS ORDERED: SODIUM CHLORIDE 0.9% 1,000 ML IV ONE (15:32)
--- NOTE | 2021-10-27 15:36 | ED ---
Female Urogenital HPI - General Chief complaint: Vaginal Bleeding Stated complaint: Abd pain/ Time Seen by Provider: 10/27/21 15:17 Source: patient Mode of arrival: ambulatory Limitations: no limitations - History of Present Illness Initial comments: Patient is a 26-year-old female, currently about 6 weeks , presenting with chief complaint of pelvic cramping and spotting. Patient is a A1. Patient's LMP is September 13. Patient states that symptoms started today, she describes as very mild cramping and slight bleeding. She has not needed any supportive treatment such as Tylenol at home. She has not yet seen an [facility] for this . She is currently on a vitamin. She denies any nausea, vomiting, fever, chills, back or flank pain, upper abdominal pain, diarrhea, constipation, hematochezia, melena, dysuria, hematuria, urgency, frequency, other vaginal discharge. - Related Data Home Medications Medication Instructions Recorded Confirmed Pnv No.95/Ferrous Fum/Folic AC 1 tab PO DAILY 09/30/18 10/27/21 [ Multivitamin Tablet] Allergies Allergy/AdvReac Type Severity Reaction Status Date / Time No Known Allergies Allergy Verified 10/27/21 15:11 Review of Systems ROS Statement: Those systems with pertinent positive or pertinent negative responses have been documented in the HPI. ROS Other: All systems not noted in ROS Statement are negative. Past Medical History Past Medical History: No Reported History Additional Past Medical History / Comment(s): OB history: first was a for failure of induction for pre-eclampsia at 37 weeks 5 days. This is her second and she has had care with DR Tan. O+, abs neg, Rub Imm, RPR NR, Hep B neg, HIV NR. GBS neg. History of Any Multi-Drug Resistant Organisms: None Reported Past Surgical History: Section Past Anesthesia/Blood Transfusion Reactions: No Reported Reaction Past Psychological History: No Psychological Hx Reported Smoking Status: Never smoker Past Alcohol Use History: Occasional Past Drug Use History: None Reported - Past Family History Mother Family Medical History: No Reported History General Exam Limitations: no limitations General appearance: alert, in no apparent distress Head exam: Present: atraumatic, normocephalic, normal inspection Eye exam: Present: normal appearance, EOMI. Absent: scleral icterus Neck exam: Present: normal inspection Respiratory exam: Present: normal lung sounds bilaterally. Absent: respiratory distress, wheezes, rales, rhonchi, stridor Cardiovascular Exam: Present: regular rate, normal rhythm, normal heart sounds. Absent: systolic murmur, diastolic murmur, rubs, gallop, clicks GI/Abdominal exam: Present: soft. Absent: distended, tenderness, guarding, rebound, rigid Neurological exam: Present: alert, oriented X3, CN II-XII intact Psychiatric exam: Present: normal affect, normal mood Skin exam: Present: warm, dry, intact, normal color. Absent: rash Course Vital Signs 10/27/21 15:06 Temperature 97.5 F L Pulse Rate 79 Respiratory 16 Rate Blood Pressure 132/81 O2 Sat by Pulse 100 Oximetry Medical Decision Making - Medical Decision Making Patient is a 26-year-old female currently 6 weeks presenting to the ER for chief complaint of mild pelvic cramping and spotting. On examination there is no tenderness on palpation. CBC shows no need for blood transfusion, CMP is unremarkable, patient is blood type O positive. Ultrasound shows possible early intrauterine , follow-up is recommended in 14 days to confirm a live fetus, no evidence of ectopic . Patient was provided with a prescription for repeat serum hCG quantitative in 48 hours and instructed to follow up with [facility]. She was a previous patient of Dr. Chavis and will follow-up at his office. Report back to ER with any new or worsening symptoms. Discussed return parameters and answered all questions. Patient conveyed verbal understanding and agreed to the plan. I discussed this case with my attending Dr. Vasquez. - Lab Data Result diagrams: 10/27/21 15:57 10/27/21 16:02 Lab Results 10/27/21 10/27/21 10/27/21 Range/Units 15:57 16:02 16:02 WBC 11.2 H (3.8-10.6) k/uL RBC 4.65 (3.80-5.40) m/uL Hgb 11.1 L (11.4-16.0) gm/dL Hct 35.9 (34.0-46.0) % MCV 77.2 L (80.0-100.0) fL MCH 23.9 L (25.0-35.0) pg MCHC 31.0 (31.0-37.0) g/dL RDW 16.2 H (11.5-15.5) % Plt Count 265 (150-450) k/uL MPV 7.5 Neutrophils % 64 % Lymphocytes % 28 % Monocytes % 4 % Eosinophils % 2 % Basophils % 0 % Neutrophils # 7.2 (1.3-7.7) k/uL Lymphocytes # 3.2 (1.0-4.8) k/uL Monocytes # 0.5 (0-1.0) k/uL Eosinophils # 0.2 (0-0.7) k/uL Basophils # 0.0 (0-0.2) k/uL Anisocytosis Slight Microcytosis Slight Sodium 138 (137-145) mmol/L Potassium 3.9 (3.5-5.1) mmol/L Chloride 106 (98-107) mmol/L Carbon Dioxide 23 (22-30) mmol/L Anion Gap 9 mmol/L BUN 9 (7-17) mg/dL Creatinine 0.56 (0.52-1.04) mg/dL Est GFR (CKD-EPI)AfAm >90 (>60 ml/min/1.73 sqM) Est GFR (CKD-EPI)NonAf >90 (>60 ml/min/1.73 sqM) Glucose 83 (74-99) mg/dL Calcium 8.9 (8.4-10.2) mg/dL Total Bilirubin 0.1 L (0.2-1.3) mg/dL AST 24 (14-36) U/L ALT 32 (4-34) U/L Alkaline Phosphatase 85 (38-126) U/L Total Protein 6.7 (6.3-8.2) g/dL Albumin 4.0 (3.5-5.0) g/dL HCG, Quant 5817.0 mIU/mL Blood Type O Positive Blood Type Recheck O Pos Bld Type Recheck Status No Disposition Clinical Impression: Threatened Disposition: HOME SELF-CARE Condition: Fair Instructions (If sedation given, give patient instructions): Threatened Miscarriage (ED) Additional Instructions: Follow up with [facility] this week. Return in 48 hours for repeat beta hCG draw. Report back to ER with any new or worsening symptoms. Is patient prescribed a controlled substance at d/c from ED?: No Referrals: Ryder Martell DO [Primary Care Provider] - 1-2 days Anirudh Tan MD [STAFF PHYSICIAN] - 1-2 days Time of Disposition: 17:58
[2021-10-27 16:13] LABS: Anisocytosis Slight; Basophils % (A) 0 %; Eosinophils # (A) 0.2 k/uL (0-0.7); Eosinophils % (A) 2 %; HCT 35.9 % (34.0-46.0); HGB 11.1 gm/dL (11.4-16.0); Lymphocytes # (A) 3.2 k/uL (1.0-4.8); Lymphocytes % (A) 28 %; MCH 23.9 pg (25.0-35.0); MCV 77.2 fL (80.0-100.0); Mean Platelet Volume 7.5; Microcytosis Slight; Monocytes # (A) 0.5 k/uL (0-1.0); Monocytes % (A) 4 %; Neutrophils # (A) 7.2 k/uL (1.3-7.7); Neutrophils % (A) 64 %; Platelet Count 265 k/uL (150-450); RBC 4.65 m/uL (3.80-5.40); RDW 16.2 % (11.5-15.5); WBC 11.2 k/uL (3.8-10.6)
[2021-10-27 16:34] LABS: ALT 32 U/L (4-34); AST 24 U/L (14-36); African American GFR (CKD) >90 (>60 ml/min/1.73 sqM); Alkaline Phosphatase 85 U/L (38-126); Anion Gap 9 mmol/L; Blood Urea Nitrogen 9 mg/dL (7-17); Calcium 8.9 mg/dL (8.4-10.2); Carbon Dioxide 23 mmol/L (22-30); Chloride 106 mmol/L (98-107); Glucose 83 mg/dL (74-99); Non-African American GFR(CKD) >90 (>60 ml/min/1.73 sqM); Potassium 3.9 mmol/L (3.5-5.1); Sodium 138 mmol/L (137-145); Total Bilirubin 0.1 mg/dL (0.2-1.3); Total Protein 6.7 g/dL (6.3-8.2)
--- NOTE | 2021-10-27 17:26 | US ---
EXAMINATION TYPE: Transabdominal DATE OF EXAM: 10/27/2021 5:17 PM COMPARISON: NONE CLINICAL HISTORY: Cramping and spotting, 5-6 weeks . small amount of bleeding with pelvic lawson n x 1 day, A1, h/o ectopic and 2 c-sections EXAM PERFORMED: OBTA EXAM MEASUREMENTS: GESTATIONAL AGE / DATING Physician Established: Not yet established Dates by LMP: (5 weeks/5 days) EDC: 09/17/2021 Dates by First Scan: No previous this is first scan Dates by Current Scan for: Unable to date by today's study, gestational sac measures less then 5wks MATERNAL ANATOMY Uterus: 8.9 x 6.0 x 3.5cm Right Ovary: 2.2 x 1.6 x 1.7cm Left Ovary: 3.1 x 2.4 x 2.5cm Post CDS / Adnexa: wnl Presence of free fluid: no Presence of corpus luteal cyst: yes, left ovary = 2.2cm Presence of subchorionic bleed: no GESTATION / SURVEY CRL: too early to see MSD: 0.8cm - less then 5 weeks Yolk Sac (normal less than 6mm): not seen IUP: gestation sac seen Date of LMP: 09/17/2021 - pt knew end of August but unsure of exact date Beta HcG (if available): 5817 IMPRESSION: Possible early intrauterine . Follow-up recommended in 14 days to confirm a living fetus if clinically indicated. No evidence of ectopic .
== END 2021-10-27 18:27 | disposition home or self-care (01) ==
LOC: EC 15:03
DX: O20.0 Threatened abortion (principal); Z3A.01 Less than 8 weeks gestation of pregnancy
CPT/HCPCS: 36415; 76801; 80053; 84702; 85025; 86900; 86901; 96360; 99284

== ENCOUNTER 2021-12-20 20:54 | Emergency (ER) | payer BC ==
--- NOTE | 2021-12-20 21:14 | ED ---
General Adult HPI - General Chief complaint: Headache Stated complaint: 13 Weeks w/high blood pressure Time Seen by Provider: 12/20/21 21:14 Source: patient Mode of arrival: ambulatory Limitations: no limitations - History of Present Illness Initial comments: Patient is a G4 at 13 weeks gestation who presents to the ED with her boyfriend for evaluation. Patient states that she has been getting intermittent headaches since her current began, and she states that she has come to the ED tonight to have her blood pressure checked because she is concerned that it may be elevated. Patient states that she took a dose of Tylenol for her headache about 3 hours ago, and she declines any pain medication at this time. Patient states that she just wants to make sure that her blood pressure is okay. Patient denies head trauma or injury, sudden onset of headache, LOC, neck pain or stiffness, fever or chills, focal numbness/weakness/neuro deficit, visual changes, speech difficulty, chest pain, dyspnea, dizziness, abdominal pain, nausea or vomiting, vaginal bleeding, urinary symptoms, or any other symptoms or complaints. - Related Data Home Medications Medication Instructions Recorded Confirmed Pnv No.95/Ferrous Fum/Folic AC 1 tab PO DAILY 09/30/18 10/27/21 [ Multivitamin Tablet] Allergies Allergy/AdvReac Type Severity Reaction Status Date / Time No Known Allergies Allergy Verified 12/20/21 21:00 Review of Systems ROS Statement: Those systems with pertinent positive or pertinent negative responses have been documented in the HPI. ROS Other: All systems not noted in ROS Statement are negative. Past Medical History Past Medical History: No Reported History Additional Past Medical History / Comment(s): OB history: first was a for failure of induction for pre-eclampsia at 37 weeks 5 days. This is her second and she has had care with DR Tan. O+, abs neg, Rub Imm, RPR NR, Hep B neg, HIV NR. GBS neg. History of Any Multi-Drug Resistant Organisms: None Reported Past Surgical History: Section Past Anesthesia/Blood Transfusion Reactions: No Reported Reaction Past Psychological History: No Psychological Hx Reported Smoking Status: Never smoker Past Alcohol Use History: Occasional Past Drug Use History: None Reported - Past Family History Mother Family Medical History: No Reported History General Exam Limitations: no limitations General appearance: alert, in no apparent distress Head exam: Present: atraumatic, normocephalic Eye exam: Present: normal appearance, PERRL, EOMI ENT exam: Present: mucous membranes moist Neck exam: Present: other (Trachea is in midline; no nuchal rigidity or meningeal signs are present on exam). Absent: tenderness, meningismus Respiratory exam: Present: normal lung sounds bilaterally. Absent: respiratory distress, wheezes, rales, rhonchi, stridor Cardiovascular Exam: Present: regular rate, normal rhythm, normal heart sounds, other (Normal radial pulses bilaterally) GI/Abdominal exam: Present: soft. Absent: distended, tenderness, guarding Extremities exam: Absent: pedal edema Neurological exam: Present: alert, oriented X3, CN II-XII intact. Absent: motor sensory deficit Psychiatric exam: Present: normal affect, normal mood Skin exam: Present: warm, dry, intact, normal color Course Vital Signs 12/20/21 20:56 Temperature 98.1 F Pulse Rate 99 Respiratory 20 Rate Blood Pressure 119/77 O2 Sat by Pulse 98 Oximetry Medical Decision Making - Medical Decision Making I have reassured the patient that her blood pressure is not elevated. Patient has a normal neurological exam. Patient has no headache red flags. I do not suspect an emergent medical condition at this time. Patient was counseled about headaches, and she was clearly explained return and follow-up instructions. Patient was instructed to follow up closely with her [facility] doctor. Patient feels comfortable with this plan. Disposition Clinical Impression: Headache, Disposition: HOME SELF-CARE Condition: Stable Instructions (If sedation given, give patient instructions): Acute Headache (ED) Additional Instructions: Return to the ER immediately should you develop new or worsening pain, neck pain or stiffness, numbness or weakness, a fever, vomiting, shortness of breath, feeling dizzy or faint, abdominal pain, vaginal bleeding, or new or worsening symptoms. Follow up closely with your [facility]WORK ADMINISTRATOR doctor. Is patient prescribed a controlled substance at d/c from ED?: No Referrals: Ryder Martell DO [Primary Care Provider] - 1-2 days Kavya Ivy DO [Doctor of Osteopathic Medicine] - 1-2 days Time of Disposition: 21:34
[2021-12-20 21:57] VITALS: BP 116/82; PULSE 68; RESP 16; TEMP 97.6
== END 2021-12-20 21:58 | disposition home or self-care (01) ==
LOC: EC 20:54
DX: O26.891 Other specified pregnancy related conditions, first trimester (principal); O10.912 Unspecified pre-existing hypertension complicating pregnancy, second trimester; R51.9 Headache, unspecified; Z3A.13 13 weeks gestation of pregnancy
CPT/HCPCS: 99283

== ENCOUNTER 2022-04-25 09:54 | Outpatient (CLI) | payer BC ==
[2022-04-25 11:34] LABS: Appearance,Urine Cloudy (Clear); Bacteria,Urine Occasional /hpf; Bilirubin,Urine Negative (Negative); Blood,Urine Negative (Negative); Color,Urine Yellow; Glucose,Urine (UA) 1+ (Negative); Ketones,Urine 1+ (Negative); Leukocyte Esterase,Urine Small (Negative); Mucus,Urine Occasional /hpf; Nitrite,Urine Negative (Negative); Protein,Urine Negative (Negative); RBC,Urine 1 /hpf (0-5); Specific Gravity,Urine 1.016 (1.001-1.035); Squamous Epithelial Cell,Urine 2 /hpf (0-4); Urobilinogen,Urine <2.0 mg/dL (<2.0); WBC,Urine 4 /hpf (0-5)
[2022-04-25 14:38] VITALS: BP 125/70; PULSE 96; RESP 18; TEMP 97.2
--- NOTE | 2022-04-29 17:54 | P.MSEPDOC ---
Presenting Problems - Arrival Data Date of Arrival on Unit: 04/25/22 Time of Arrival on Unit: 09:54 Mode of Transport: Ambulatory - Complaint OB-Reason for Admission/Chief Complaint: Other Comment: pt presents to triage for cramping that has been happening for the last week, it was worse yesterday, states she has not had much to drink Medical History - Information : 4 Para: 2 Term: 2 : 0 Abortions: Spontaneous or Elective: 1 Number of Living Children: 2 - Gestational Age Gestational Age by TRES (wks/days): 36 Weeks and 3 Days Review of Systems - Review of Systems Constitutional: No problems Breast: No problems ENT: No problems Cardiovascular: No problems Respiratory: No problems Gastrointestinal: No problems Genitourinary: No problems Musculoskeletal: No problems Neurological: No problems Skin: No problems Vital Signs - Temperature Temperature: 97.2 F Temperature Source: Temporal Artery Scan - Pulse Apical Pulse Rate: 96 Pulse Assessment Method: Automatic Cuff - Respirations Respiratory Rate: 18 Oxygen Delivery Method: Room Air - Blood Pressure Right Arm Blood Pressure: 125/70 Blood Pressure Mean: 88 Blood Pressure Source: Automatic Cuff Medical Screen Scoring - Assessment - Baby A Baseline FHR: 140 Heart Rate - NICHD Category: Category I (Normal) NST: Reactive Physician Notification - Physician Notified Physician Notified Date: 04/25/22 Physician Notified Time: 10:41 Physician: Kavya Ivy Order Received: Yes - Notification Comment Comment: UA obtained and sent, order per Dr. Tan to do order urine culture, pt discharged home and has follow up visit on 04/29 Maternal Triage Index - Maternal Triage Index Presenting for scheduled procedure w/no complaint: No - Stat/Priority 1 Stat Priority 1: No - Urgent/Priority 2 Urgent Priority 2: No - Prompt/Priority 3 Prompt Priority 3: Yes Criteria Met for Priority 3: pt presents to triage for cramping that has been happening for the last week, it was worse yesterday, states she has not had much to drink Disposition - Disposition OB Disposition: Triage, Discharge to home, Written follow up instructions reviewed Discharge Date: 04/25/22 Discharge Time: 11:45 I agree with the RN Medical Screening Exam: Yes Case reviewed; plan agreed upon as documented in EMR&OBIX.: Yes Diagnosis: FALSE LABOR BEFORE 37 COMPLETED WEEKS OF GEST, THIRD TRI
== END 2022-04-25 11:45 | disposition home or self-care (01) ==
LOC: FBPOP 09:54
PROVIDERS: ATTEND Obstetrics & Gynecology
DX: O47.03 False labor before 37 completed weeks of gestation, third trimester (principal); Z3A.36 36 weeks gestation of pregnancy
CPT/HCPCS: 59025; 81001; 87086; 99213

== ENCOUNTER 2022-06-17 05:40 | Inpatient (IN) | payer BC, OTHER ==
[2022-06-16 14:19] VITALS: BMI 47.1
--- NOTE | 2022-06-16 18:29 | P.HPOB ---
History of Present Illness H&P Date: 06/16/22 Chief Complaint: Scheduled repeat with tubal ligation This is a 27 y.o. female, 4, para 2, with an estimated date of confinement of 06/23/2022, estimated gestational age of 39-1/7 weeks, who presents for scheduled repeat section with bilateral partial salpingectomy for family planning. course has been uncomplicated. labs: GC/Chlamydia/Trich-neg Hepatitis B surface antigen-neg RPR-NR Rubella-immune Blood type-O+ Antibody screen-neg HIV-NR Hemoglobin-11.1 Random glucose-85 Quad-neg 1 hr. GTT-142 3 hr. GTT-wnl GBS-positive OB Hx: . History of 2 previous sections. Hx laparotomy with R. partial salpingectomy for ectopic. 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 Social Hx: Single. Works part-time at [employer] Review of Systems Constitutional: Denies chills, Denies fever Eyes: denies blurred vision, denies pain Ears, nose, mouth and throat: Denies headache, Denies sore throat Cardiovascular: Denies chest pain, Denies shortness of breath Respiratory: Denies cough Gastrointestinal: Reports abdominal pain (irregular contractions) Genitourinary: Reports pelvic pain, Reports Musculoskeletal: Denies myalgias Integumentary: Denies pruritus, Denies rash Neurological: Denies numbness, Denies weakness Psychiatric: Denies anxiety, Denies depression Past Medical History Past Medical History: No Reported History History of Any Multi-Drug Resistant Organisms: None Reported Past Surgical History: Section (x2) Additional Past Surgical History / Comment(s): Exploratory laparotomy R. partial salpingectomy due to ectopic Past Anesthesia/Blood Transfusion Reactions: No Reported Reaction Past Psychological History: No Psychological Hx Reported Smoking Status: Former smoker Past Alcohol Use History: None Reported Past Drug Use History: None Reported - Past Family History Mother Family Medical History: Cancer Additional Family Medical History / Comment(s): nonhodgkins lymphomas Father Family Medical History: Asthma, Hypertension Medications and Allergies Home Medications Medication Instructions Recorded Confirmed Type Pnv No.95/Ferrous Fum/Folic AC 1 tab PO DAILY 09/30/18 06/16/22 History [ Multivitamin Tablet] Aspirin [Children's Aspirin] 81 mg PO DAILY 04/25/22 06/16/22 History RX: Ferrous Sulfate [Iron] 325 mg PO DAILY 04/25/22 06/16/22 History Allergies Allergy/AdvReac Type Severity Reaction Status Date / Time No Known Allergies Allergy Verified 06/16/22 14:12 Exam Osteopathic Statement: *. No significant issues noted on an osteopathic structural exam other than those noted in the History and Physical/Consult. Intake and Output 06/16/22 06/16/22 06/16/22 06:59 14:59 22:59 Other: Weight 98.883 kg HEENT: within normal limits Heart: regular rate and rhythm Lungs: clear to auscultation bilaterally Abdomen: , non-tender Cervix: closed/50%/-2 heart tones: 140's by doppler Extremities: neg. Marcia's Results Result Diagrams: 06/17/22 06:00 Assessment and Plan (1) 39 weeks gestation of Current Visit: No Status: Acute Code(s): Z3A.39 - 39 WEEKS GESTATION OF SNOMED Code(s): 93454401 (2) Previous delivery affecting Current Visit: No Status: Acute Code(s): O34.219 - MATERNAL CARE FOR UNSP TYPE SCAR FROM PREVIOUS DEL SNOMED Code(s): 680638936 (3) Family planning Current Visit: No Status: Acute Code(s): Z30.09 - ENCOUNTER FOR OT GENERAL CNSL AND ADVICE ON CONTRACEPTION SNOMED Code(s): 278900186 Plan: Proceed with repeat low transverse section with bilateral partial salpingectomy. I have discussed the risks, benefits, and alternative therapies for the above- mentioned procedure and for both sedation/anesthesia as well as necessary blood products administration, if indicated, as they pertain to this patient. The patient has indicated her understanding and acceptance of the risks and proced ures discussed.
[2022-06-17] MEDS ORDERED: LACTATED RINGERS 1,000 ML IV ONE (05:59)
[2022-06-17] MEDS ORDERED: CITRIC ACID-SODIUM CITRATE 15 ML CUP PO ONE (05:59)
[2022-06-17] MEDS ORDERED: LIDOCAINE 1% (10MG/ML) FOR IV START INTRADERMA PRN (05:59)
[2022-06-17 06:20] LABS: Anisocytosis Slight; Basophils % (A) 0 %; Eosinophils # (A) 0.2 k/uL (0-0.7); Eosinophils % (A) 2 %; HCT 32.7 % (34.0-46.0); HGB 10.6 gm/dL (11.4-16.0); Lymphocytes # (A) 2.6 k/uL (1.0-4.8); Lymphocytes % (A) 22 %; MCH 25.2 pg (25.0-35.0); MCHC 32.5 g/dL (31.0-37.0); MCV 77.7 fL (80.0-100.0); Mean Platelet Volume 7.6; Microcytosis Slight; Monocytes # (A) 0.5 k/uL (0-1.0); Monocytes % (A) 4 %; Neutrophils # (A) 8.4 k/uL (1.3-7.7); Neutrophils % (A) 71 %; Platelet Count 189 k/uL (150-450); RBC 4.21 m/uL (3.80-5.40); RDW 17.3 % (11.5-15.5); WBC 11.9 k/uL (3.8-10.6)
[2022-06-17] MEDS ORDERED: PHENYLEPHRINE-0.9% NACL SYG 1,000 MCG/10 ML SYRINGE ONE (07:52)
[2022-06-17] MEDS ORDERED: SODIUM CHLORIDE 0.9% 100 ML BAG ONE (07:52)
[2022-06-17] MEDS ORDERED: ceFAZolin 1,000 MG VIAL ONE (07:52)
[2022-06-17] MEDS ORDERED: NALBUPHINE 10 MG/ML (1 ML AMP) ONE (07:52)
[2022-06-17] MEDS ORDERED: MORPHINE SULFATE (PF) 0.3 MG/0.3 ML SYR ONE (07:52)
[2022-06-17] MEDS ORDERED: GLYCOPYRROLATE 0.2 MG/ML 2 ML VIAL ONE (07:52)
[2022-06-17] MEDS ORDERED: OXYTOCIN 30 UNITS/500 ML NS BAG IV ONE (07:52)
[2022-06-17] MEDS ORDERED: KETOROLAC 30 MG/ML 1 ML VIAL ONE (07:52)
--- NOTE | 2022-06-17 08:44 | P.OP ---
Date of Procedure: 06/17/22 Preoperative Diagnosis: 1. Intrauterine at 39 and one sevenths weeks. 2. History of previous sections. 3. Family-planning. 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 She does have a history of a previous right ectopic with a portion of the right fallopian tube was then removed. I have discussed the risks, benefits, and alternative therapies for the above- mentioned procedure and for both sedation/anesthesia as well as necessary blood products administration, if indicated, as they pertain to this patient. The patient has indicated her understanding and acceptance of the risks and procedures discussed. Operative Findings: A viable female is noted in the vertex presentation with nuchal cord 1 and scores of 8 at 1 minute and 9 at 5 minutes and weight of 7 lbs. 4 oz. Normal uterus and ovaries are noted. There is evidence of previous right partial salpingectomy with the entire fimbriated end of the tube gone. The left fallopian tube appears normal. There was also noted to be some omental adhesions to the anterior abdominal wall more on the left side. Description of Procedure: The patient is taken to the operating room where she is placed in the dorsal supine position with leftward tilt after spinal Duramorph anesthesia is given. She is prepped and draped in the normal sterile fashion. Skin was tested and found to be adequately anesthetized. A Pfannenstiel skin incision was made with a scalpel through the previous laparotomy scar. A second knife was used to carry the incision down to the underlying layer of fascia. The fascia was nicked in the midline with a scalpel and then extended laterally bilaterally with Morgan scissors. The anterior lip of the fascia was grasped with 2 Billy clamps and then dissected off the underlying rectus muscle in the midline with Morgan scissors. The inferior aspect of the fascial incision was grasped with 2 Billy clamps and dissected off the underlying rectus muscle and the midline with Morgan scissors. Next the peritoneum layer was tented up with 2 hemostats and then entered sharply with the scalpel. The incision is extended superiorly and inferiorly with Metzenbaum scissors. There were noted to be some omental adhesions just to the left side of the peritoneal incision. Next a DeLee retractor is placed. The vesicouterine peritoneum is entered sharply with Metzenbaum scissors and extended laterally bilaterally with Metzenbaum scissors and then the bladder flap is pushed inferiorly. The lower uterine segment is incised in transverse fashion with the scalpel and then bluntly entered with a hemostat. Clear fluid is noted. The incision was then extended laterally bilaterally with 2 fingers. Next the infant's head is delivered through the incision. Nose and mouth are bulb suctioned. Nuchal cord times one is reduced around the infant's head. The remainder of the is easily delivered and placed on mother's abdomen. Cord is clamped and cut. is taken to warmer by nursing staff. Uterine fundus is gently massaged and placenta is delivered manually. Uterus is exteriorized and cleared of all clots and debris. Uterine incision is closed with 0 Vicryl suture in a running locked fashion. A second layer of 0 Vicryl suture is used in a running fashion for hemostasis. Once adequate hemostasis as assured, the vesicouterine peritoneum is reapproximated with 2-0 Vicryl suture in a running fashion. Posterior cul-de-sac is suctioned of all clots and debris. Uterus is returned to the abdomen. Incision is noted to be hemostatic. Peritoneal layer is closed with 0 Vicryl suture in a running fashion. Muscle layer is reapproximated with 0 Vicryl suture in interrupted fashion. Fascia layer is then closed with 0 PDS suture with 2 sutures meeting in the midline and the knots buried in either side and in the midline. The subcutaneous tissue was then closed with 2-0 Vicryl suture. Skin layer was then closed with tony. All sponge and needle counts are correct. The patient is taken to recovery room in stable condition.
[2022-06-17] MEDS ORDERED: HYDROmorphone 1 MG/ML 1 ML SYRINGE IVP PRN (09:38)
[2022-06-17] MEDS ORDERED: diphenhydrAMINE 50 MG/ML 1 ML VIAL IVP PRN ×2 (09:38)
[2022-06-17] MEDS ORDERED: OXYTOCIN 30 UNITS/500 ML NS 30 UNIT in SALINE 1 500ML.BAG IV SCH (09:38)
[2022-06-17] MEDS ORDERED: SIMETHICONE 80 MG CHEWABLE PO PRN (09:38)
[2022-06-17] MEDS ORDERED: OXYTOCIN 10 UNIT/ML 1 ML VIAL IM PRN (09:38)
[2022-06-17] MEDS ORDERED: METOCLOPRAMIDE 5 MG/ML 2 ML VIAL IVP PRN (09:38)
[2022-06-17] MEDS ORDERED: diphenhydrAMINE 25 MG CAP PO PRN (09:38)
[2022-06-17] MEDS ORDERED: METHYLERGONOVINE 0.2 MG/ML 1 ML AMP IM PRN (09:38)
[2022-06-17] MEDS ORDERED: NALOXONE 0.4 MG/ML 1 ML VIAL IV PRN (09:38)
[2022-06-17] MEDS ORDERED: miSOPROStoL 200 MCG TAB PO PRN (09:38)
[2022-06-17] MEDS ORDERED: diphenhydrAMINE 50 MG CAP PO PRN (09:38)
[2022-06-17] MEDS ORDERED: ZOLPIDEM 5 MG TAB PO PRN (09:38)
[2022-06-17] MEDS ORDERED: LANOLIN CREAM 5 GM TUBE TOPICAL PRN (09:38)
[2022-06-17] MEDS ORDERED: TRANEXAMIC ACID IN NACL,ISO-OS 1,000 MG in EMPTY BAG 1 BAG IV PRN (09:38)
[2022-06-17] MEDS ORDERED: CARBOPROST TROMETHAMINE 250 MCG/ML 1 ML AMP IM PRN (09:38)
[2022-06-17] MEDS ORDERED: ONDANSETRON 4 MG/2 ML VIAL IVP PRN (09:38)
[2022-06-17] MEDS ORDERED: HYDROmorphone 0.5 MG/0.5 ML SYRINGE IVP PRN (09:38)
[2022-06-17] MEDS: LACTATED RINGERS 1,000 ML IV SCH ×3 (10:08→23:39)
[2022-06-17] MEDS: SENNOSIDES-DOCUSATE SODIUM 1 EACH TAB PO SCH ×2 (10:09→20:47)
[2022-06-17] MEDS: ACETAMINOPHEN IV (For NPO) 1,000 MG in EMPTY BAG 1 BAG IVPB SCH ×2 (11:18→18:06)
[2022-06-17] MEDS: ACETAMINOPHEN TAB 500 MG TAB PO SCH ×2 (12:22→17:32)
[2022-06-17] MEDS: KETOROLAC 15 MG/ML 1 ML VIAL IVP SCH ×2 (15:16→23:46)
[2022-06-17] MEDS: IBUPROFEN 600 MG TAB PO SCH ×2 (17:31→20:24)
[2022-06-18] MEDS: ACETAMINOPHEN TAB 500 MG TAB PO SCH ×4 (01:18→17:43)
[2022-06-18] MEDS: IBUPROFEN 600 MG TAB PO SCH ×4 (01:19→19:35)
[2022-06-18] MEDS: KETOROLAC 15 MG/ML 1 ML VIAL IVP SCH ×2 (05:50→13:38)
[2022-06-18] MEDS: LACTATED RINGERS 1,000 ML IV SCH (06:04)
[2022-06-18 06:58] LABS: Anisocytosis Slight; Basophils % (A) 0 %; Eosinophils # (A) 0.1 k/uL (0-0.7); Eosinophils % (A) 1 %; HCT 32.3 % (34.0-46.0); HGB 10.4 gm/dL (11.4-16.0); Hypochromasia Slight; Lymphocytes # (A) 1.9 k/uL (1.0-4.8); Lymphocytes % (A) 18 %; MCH 25.7 pg (25.0-35.0); MCHC 32.2 g/dL (31.0-37.0); MCV 79.8 fL (80.0-100.0); Mean Platelet Volume 7.8; Microcytosis Slight; Monocytes # (A) 0.4 k/uL (0-1.0); Monocytes % (A) 4 %; Neutrophils % (A) 76 %; Platelet Count 149 k/uL (150-450); RBC 4.05 m/uL (3.80-5.40); RDW 17.3 % (11.5-15.5); WBC 10.5 k/uL (3.8-10.6)
[2022-06-18] MEDS: SENNOSIDES-DOCUSATE SODIUM 1 EACH TAB PO SCH ×2 (07:56→19:35)
--- NOTE | 2022-06-18 08:31 | P.PN ---
Progress Note - Text Progress Note Date: 06/18/22 Postop day 1 from under spinal anesthesia with intrathecal morphine given for postop pain management. Patient is doing well. Pain is well controlled. On visual analog scale 3/10 Mild itching present No nausea or vomiting reported. No Headache or weakness and numbness in the legs. No complications from spinal anesthesia.
--- NOTE | 2022-06-18 08:44 | P.PNOBGPC ---
Subjective - Subjective Principal diagnosis: Status post repeat with tubal ligation postoperative day 1 Interval history: Patient is doing okay. She is trying to pump her breast milk. Her lochia as decreasing. Her pain is fairly well controlled. Baby is in level I nursery with some breathing issues. Patient reports: Reports appetite normal, Reports voiding normally, Reports pain well controlled, Reports ambulating normally : other (In level I nursery) Objective - Vital Signs Latest vital signs: Vital Signs Temp Pulse Resp BP Pulse Ox 06/18/22 04:00 98.1 F 80 16 106/67 99 06/18/22 00:00 98.1 F 74 16 102/67 98 06/17/22 20:00 97.5 F L 76 16 123/82 98 06/17/22 16:00 98.6 F 76 16 118/76 98 06/17/22 15:52 97.7 F 97 15 111/67 06/17/22 12:09 97.9 F 78 16 118/81 06/17/22 10:50 96.5 F L 68 16 120/68 06/17/22 10:20 71 16 136/64 99 06/17/22 09:50 70 16 116/66 99 06/17/22 09:35 75 16 116/67 98 06/17/22 09:20 68 16 117/63 98 06/17/22 09:05 72 16 116/60 98 06/17/22 08:50 96.8 F L 75 16 117/64 98 Intake and Output 06/17/22 06/18/22 06/18/22 22:59 06:59 14:59 Intake Total 800 Output Total 800 Balance 0 Intake: Oral 800 Output: Urine 800 Other: # Voids 1 - Exam Extremities: Present: normal. Absent: tenderness, edema Abdomen: Present: normal appearance, soft (Positive bowel sounds 4). Absent: distention, tenderness Incision: Present: normal, dry, intact. Absent: erythematous Uterus: Present: normal, firm. Absent: tenderness - Labs Labs: Abnormal Lab Results - Last 24 Hours (Table) 06/18/22 Range/Units 06:21 Hgb 10.4 L (11.4-16.0) gm/dL Hct 32.3 L (34.0-46.0) % MCV 79.8 L (80.0-100.0) fL RDW 17.3 H (11.5-15.5) % Plt Count 149 L (150-450) k/uL Neutrophils # 8.0 H (1.3-7.7) k/uL Assessment and Plan Assessment: Status post repeat low transverse section with left partial salpingectomy postoperative day #1 (1) 39 weeks gestation of Current Visit: No Status: Acute Code(s): Z3A.39 - 39 WEEKS GESTATION OF SNOMED Code(s): 11892211 (2) Previous delivery affecting Current Visit: No Status: Acute Code(s): O34.219 - MATERNAL CARE FOR UNSP TYPE SCAR FROM PREVIOUS DEL SNOMED Code(s): 795274929 (3) Family planning Current Visit: No Status: Acute Code(s): Z30.09 - ENCOUNTER FOR OT GENERAL CNSL AND ADVICE ON CONTRACEPTION SNOMED Code(s): 180434780 Plan: Continue with postoperative and care. Patient is encouraged to ambulate.
[2022-06-18] MEDS: FERROUS SULFATE 325 MG TAB PO SCH (10:10)
[2022-06-18] MEDS: PRENATAL VIT-IRON-FOLIC ACID 1 EACH TABLET PO SCH (10:10)
[2022-06-19] MEDS: ACETAMINOPHEN TAB 500 MG TAB PO SCH ×3 (00:21→16:36)
[2022-06-19] MEDS: IBUPROFEN 600 MG TAB PO SCH ×3 (04:02→17:43)
--- NOTE | 2022-06-19 07:02 | P.PNOBGPC ---
Subjective - Subjective Principal diagnosis: Status post repeat with tubal postoperative day #2 Interval history: Patient is doing okay. She states the Motrin helps but the Tylenol 3 does not help with her pain. She has been ambulating. She is urinating without difficulty. She is passing flatus and bowel movement. She is still trying to pump her breast milk. Baby is still in level I nursery on oxygen. Lochia has been decreasing. Patient reports: Reports appetite normal, Reports voiding normally, Reports pain well controlled, Reports ambulating normally : other (In level I nursery) Objective - Vital Signs Latest vital signs: Vital Signs Temp Pulse Resp BP Pulse Ox 06/19/22 00:00 98.8 F 97 16 126/68 98 06/18/22 16:00 98.7 F 98 18 121/81 99 06/18/22 12:00 97.5 F L 84 16 128/84 100 06/18/22 08:00 97.7 F 85 16 117/75 100 Intake and Output 06/18/22 06/19/22 06/19/22 22:59 06:59 14:59 Intake Total 480 Balance 480 Intake: Oral 480 Other: # Voids 1 1 - Exam Extremities: Present: normal. Absent: tenderness, edema Abdomen: Present: normal appearance, soft (Positive bowel sounds 4). Absent: distention, tenderness Incision: Present: normal, dry, intact. Absent: erythematous Uterus: Present: normal, firm. Absent: tenderness Assessment and Plan Assessment: Status post repeat low transverse section with left partial salpingectomy postoperative day #2 (1) 39 weeks gestation of Current Visit: No Status: Acute Code(s): Z3A.39 - 39 WEEKS GESTATION OF SNOMED Code(s): 22434210 (2) Previous delivery affecting Current Visit: No Status: Acute Code(s): O34.219 - MATERNAL CARE FOR UNSP TYPE SCAR FROM PREVIOUS DEL SNOMED Code(s): 590855008 (3) Family planning Current Visit: No Status: Acute Code(s): Z30.09 - ENCOUNTER FOR OTH GENERAL CNSL AND ADVICE ON CONTRACEPTION SNOMED Code(s): 341047447 Plan: Continue with postoperative and care today. Patient may want to go to [facility] after discharge if baby is still in the nursery.
[2022-06-19] MEDS: SENNOSIDES-DOCUSATE SODIUM 1 EACH TAB PO SCH (08:37)
[2022-06-19] MEDS: PRENATAL VIT-IRON-FOLIC ACID 1 EACH TABLET PO SCH (08:40)
[2022-06-19] MEDS: FERROUS SULFATE 325 MG TAB PO SCH (08:40)
--- NOTE | 2022-06-20 08:40 | P.DS ---
Providers Date of admission: 06/17/22 05:40 Expected date of discharge: 06/20/22 Attending physician: Kavya Ivy Primary care physician: Stated None - Discharge Diagnosis(es) (1) 39 weeks gestation of Current Visit: No Status: Acute (2) Previous delivery affecting Current Visit: No Status: Acute (3) Family planning Current Visit: No Status: Acute Hospital Course: This is a 27-year-old female 4 para 2 at 39 and one sevenths weeks who presented for repeat section with tubal ligation. She underwent a repeat low transverse section with left partial salpingectomy on 06/17/2022. Her course has been uncomplicated. Her baby did go to level I nursery for some oxygen issues. Her pain is fairly well controlled. She is pumping her breast milk. Lochia is decreasing. Vital signs are stable. Abdomen is soft with fundus firm and nontender. Incision is clean dry and intact with tony in place. Extremities show negative Homans. Impression is status post repeat low transverse section with left partial salpingectomy postoperative day #3. Plan is to discharge home today. Routine postoperative and instructions are given. She will be given a prescription for ibuprofen. She has a breast pump at home. She is advised to follow up in the office in 1 week for postoperative check and in 6 weeks for check. Procedures: Repeat low transverse section with left partial salpingectomy on 06/17/2022 Patient Condition at Discharge: Stable Plan - Discharge Summary Discharge Rx Participant: No New Discharge Prescriptions: New Ibuprofen [Motrin] 600 mg PO Q6H #60 tab Acetaminophen Tab [Tylenol] 1,000 mg PO Q6H tab Continue Pnv No.95/Ferrous Fum/Folic AC [ Multivitamin Tablet] 1 tab PO DAILY Ferrous Sulfate [Iron] 325 mg PO DAILY Discontinued Aspirin [Children's Aspirin] 81 mg PO DAILY Discharge Medication List Pnv No.95/Ferrous Fum/Folic AC [ Multivitamin Tablet] 1 tab PO DAILY 09/30/18 [History] Ferrous Sulfate [Iron] 325 mg PO DAILY 04/25/22 [History] Acetaminophen Tab [Tylenol] 1,000 mg PO Q6H tab 06/20/22 [Rx] Ibuprofen [Motrin] 600 mg PO Q6H #60 tab 06/20/22 [Rx] Follow up Appointment(s)/Referral(s): Kavya Ivy DO [Doctor of Osteopathic Medicine] - 1 Week Activity/Diet/Wound Care/Special Instructions: Instructions 1. Do not begin any exercise program for 3 weeks. 2. Do not resume sexual relations for 3 weeks or longer if uncomfortable. 3. You may take tub baths or showers at any time. 4. You may use tampons if desired after 3 weeks. 5. Keep the area of episiotomy (stitches) clean and dry. 6. If you are not nursing, wear a good fitting, supportive bra during the day and limit fluid intake for at least 1 week to prevent breast engorgement. 7. Call the office, [phone], within the next week to make appointment for your 6 week checkup if it has not already been made. 8. Report any of the following occurrences to the doctor promptly: a. Heavy, excessive bleeding b. Chills, fever c. Burning or frequency of urination d. Pain or redness and breasts if nursing e. Increasing pain or swelling in episiotomy (stitches). In addition to the above instructions, the following additional should be followed: 1. No heavy lifting or straining (exercising) until after 6 week checkup. 2. Keep abdominal incision clean and dry: You may wear a dressing if more comfortable. 3. Make office appointment for 10 days after going home or as instructed by her doctor. Discharge Disposition: HOME SELF-CARE
[2022-06-20] MEDS: IBUPROFEN 600 MG TAB PO SCH ×3 (09:28→09:48)
[2022-06-20] MEDS: ACETAMINOPHEN TAB 500 MG TAB PO SCH ×2 (09:28→12:36)
[2022-06-20] MEDS: SENNOSIDES-DOCUSATE SODIUM 1 EACH TAB PO SCH ×2 (09:29→09:49)
[2022-06-20] MEDS: PRENATAL VIT-IRON-FOLIC ACID 1 EACH TABLET PO SCH (09:48)
[2022-06-20] MEDS: FERROUS SULFATE 325 MG TAB PO SCH (09:48)
[2022-06-20 11:41] VITALS: BP 122/70; PULSE 86; RESP 18; TEMP 97.7
== END 2022-06-20 14:35 | disposition home or self-care (01) | DRG 785 ==
LOC: 4FBP 05:40
PROVIDERS: ADMIT Obstetrics & Gynecology; ATTEND Obstetrics & Gynecology
PROC: 10D00Z1 Extraction of Products of Conception, Low, Open Approach (ICD-10-PCS; principal; 2022-06-17 07:53)
PROC: 0UB60ZZ Excision of Left Fallopian Tube, Open Approach (ICD-10-PCS; principal; 2022-06-17 07:53)
DX: O34.211 Maternal care for low transverse scar from previous cesarean delivery (principal); O99.824 Streptococcus B carrier state complicating childbirth; O69.81X0 Labor and delivery complicated by cord around neck, without compression, not applicable or unspecified; Z87.891 Personal history of nicotine dependence; Z79.82 Long term (current) use of aspirin; Z79.899 Other long term (current) drug therapy; Z86.19 Personal history of other infectious and parasitic diseases; Z30.2 Encounter for sterilization; Z3A.39 39 weeks gestation of pregnancy; Z37.0 Single live birth
CPT/HCPCS: 85025; 86850; 86900; 86901; 88302

== ENCOUNTER 2022-09-13 18:14 | Emergency (ER) | payer BC, OTHER ==
[2022-09-13 18:25] VITALS: BP 126/85; PULSE 91; RESP 20; TEMP 97.6
[2022-09-13] MEDS ORDERED: SODIUM CHLORIDE 0.9% 1,000 ML IV STA (18:37)
[2022-09-13] MEDS ORDERED: KETOROLAC 15 MG/ML 1 ML VIAL IVP STA (18:37)
[2022-09-13] MEDS ORDERED: ORPHENADRINE 30 MG/ML 2 ML VIAL IVP STA (18:38)
[2022-09-13 18:59] LABS: Basophils # (A) 0.1 k/uL (0-0.2); Basophils % (A) 1 %; Eosinophils # (A) 0.2 k/uL (0-0.7); Eosinophils % (A) 2 %; HCT 35.1 % (34.0-46.0); HGB 11.4 gm/dL (11.4-16.0); Lymphocytes # (A) 2.3 k/uL (1.0-4.8); Lymphocytes % (A) 22 %; MCH 24.9 pg (25.0-35.0); MCHC 32.5 g/dL (31.0-37.0); MCV 76.7 fL (80.0-100.0); Mean Platelet Volume 7.2; Microcytosis Slight; Monocytes # (A) 0.5 k/uL (0-1.0); Monocytes % (A) 5 %; Neutrophils # (A) 7.3 k/uL (1.3-7.7); Neutrophils % (A) 69 %; Platelet Count 308 k/uL (150-450); RBC 4.58 m/uL (3.80-5.40); RDW 15.5 % (11.5-15.5); WBC 10.6 k/uL (3.8-10.6)
[2022-09-13 19:07] LABS: Appearance,Urine Clear (Clear); Bacteria,Urine Many /hpf; Bilirubin,Urine Negative (Negative); Blood,Urine Trace (Negative); Color,Urine Light Yellow; Glucose,Urine (UA) Negative (Negative); Ketones,Urine Trace (Negative); Leukocyte Esterase,Urine Negative (Negative); Mucus,Urine Moderate /hpf; Nitrite,Urine Negative (Negative); Protein,Urine Negative (Negative); RBC,Urine 1 /hpf (0-5); Specific Gravity,Urine 1.014 (1.001-1.035); Squamous Epithelial Cell,Urine 2 /hpf (0-4); Urobilinogen,Urine <2.0 mg/dL (<2.0); WBC,Urine 2 /hpf (0-5)
[2022-09-13 19:15] LABS: ALT 17 U/L (4-34); AST 16 U/L (14-36); African American GFR (CKD) >90 (>60 ml/min/1.73 sqM); Albumin 3.9 g/dL (3.5-5.0); Alkaline Phosphatase 124 U/L (38-126); Amylase 32 U/L (30-110); Anion Gap 9 mmol/L; Blood Urea Nitrogen 10 mg/dL (7-17); Calcium 8.7 mg/dL (8.4-10.2); Carbon Dioxide 26 mmol/L (22-30); Chloride 104 mmol/L (98-107); Glucose 97 mg/dL (74-99); Lipase 61 U/L (23-300); Non-African American GFR(CKD) >90 (>60 ml/min/1.73 sqM); Potassium 3.6 mmol/L (3.5-5.1); Sodium 139 mmol/L (137-145); Total Bilirubin 0.3 mg/dL (0.2-1.3); Total Protein 6.9 g/dL (6.3-8.2)
[2022-09-13] MEDS ORDERED: LIDOCAINE 5% PATCH TOPICAL STA (19:35)
--- NOTE | 2022-09-13 20:04 | ED ---
General Adult HPI - General Chief complaint: Abdominal Pain Stated complaint: L side pain Time Seen by Provider: 09/13/22 18:27 Source: patient Mode of arrival: ambulatory Limitations: no limitations - History of Present Illness Initial comments: Patient is a 27-year-old female presenting with chief complaint of back pain and left upper quadrant pain. Symptoms started a few hours ago today. Pain came on suddenly. Patient was seen at urgent care and advised her porch to the ER. No nausea, vomiting, diarrhea. No fevers or chills. No chest pain or difficulty breathing. No injury or trauma. No palpitations or weakness. No dysuria, hematuria, urgency, frequency. - Related Data Home Medications Medication Instructions Recorded Confirmed Pnv No.95/Ferrous Fum/Folic AC 1 tab PO DAILY 09/30/18 06/16/22 [ Multivitamin Tablet] Ferrous Sulfate [Iron] 325 mg PO DAILY 04/25/22 06/16/22 Previous Rx's Medication Instructions Recorded Acetaminophen Tab [Tylenol] 1,000 mg PO Q6H tab 06/20/22 Ibuprofen [Motrin] 600 mg PO Q6H #60 tab 06/20/22 Allergies Allergy/AdvReac Type Severity Reaction Status Date / Time No Known Allergies Allergy Verified 06/16/22 14:12 Review of Systems ROS Statement: Those systems with pertinent positive or pertinent negative responses have been documented in the HPI. ROS Other: All systems not noted in ROS Statement are negative. Past Medical History Past Medical History: No Reported History Additional Past Medical History / Comment(s): post pardum 06/17/22 History of Any Multi-Drug Resistant Organisms: None Reported Past Surgical History: Section Additional Past Surgical History / Comment(s): Exploratory laparotomy R. partial salpingectomy due to ectopic Past Anesthesia/Blood Transfusion Reactions: No Reported Reaction Past Psychological History: No Psychological Hx Reported Smoking Status: Former smoker Past Alcohol Use History: None Reported Past Drug Use History: None Reported - Past Family History Mother Family Medical History: Cancer Additional Family Medical History / Comment(s): nonhodgkins lymphomas Father Family Medical History: Asthma, Hypertension General Exam Limitations: no limitations General appearance: alert, in no apparent distress Head exam: Present: atraumatic, normocephalic, normal inspection Eye exam: Present: normal appearance, EOMI. Absent: periorbital swelling Neck exam: Present: normal inspection, full ROM Respiratory exam: Present: normal lung sounds bilaterally. Absent: respiratory distress, wheezes, rales, rhonchi, stridor Cardiovascular Exam: Present: regular rate, normal rhythm, normal heart sounds. Absent: systolic murmur, diastolic murmur, rubs, gallop, clicks GI/Abdominal exam: Present: soft. Absent: distended, tenderness, guarding, rebound, rigid Back exam: Present: normal inspection, paraspinal tenderness. Absent: vertebral tenderness Neurological exam: Present: alert, oriented X3, CN II-XII intact Psychiatric exam: Present: normal affect, normal mood Skin exam: Present: warm, dry, intact, normal color. Absent: rash Course Vital Signs 09/13/22 18:22 Temperature 97.6 F Pulse Rate 91 Respiratory 20 Rate Blood Pressure 126/85 O2 Sat by Pulse 99 Oximetry Medical Decision Making - Medical Decision Making Was pt. sent in by a medical professional or institution (, PA, TUNNEL MUCKER, urgent care, hospital, or senior care...) When possible be specific @ -No Did you speak to anyone other than the patient for history (EMS, parent, family, police, friend...)? What history was obtained from this source @ -No Did you review nursing and triage notes (agree or disagree)? Why? @ -I reviewed and agree with nursing and triage notes Were old charts reviewed (outside hosp., previous admission, EMS record, old EKG, old radiological studies, urgent care reports/EKG's, senior care records)? Report findings @ -No old charts were reviewed Differential Diagnosis (chest pain, altered mental status, abdominal pain women, abdominal pain men, vaginal bleeding, weakness, fever, dyspnea, syncope, headache, dizziness, GI bleed, back pain, seizure, CVA, palpatations, mental health, musculoskeletal)? @ -MDM Differential Abdominal Pain Women: Appendicitis, Cholecystitis, diverticulosis, ischemic bowel, pancreatitis, hepatitis, UTI, gastroenteritis, AAA, incarcerated hernia, bowel obstruction, constipation, inflammatory bowel, hepatitis, peptic ulcer disease, splenic infarction, perforated viscus, vulvitis, ovarian torsion, PID, kidney stone, p lacenta abruption... This is not meant to be an all-inclusive list EKG interpreted by me (3pts min.). @ -As above X-rays interpreted by me (1pt min.). @ -None done CT interpreted by me (1pt min.). @ -None done U/S interpreted by me (1pt. min.). @ -None done What testing was considered but not performed or refused? (CT, X-rays, U/S, labs)? Why? @ -None What meds were considered but not given or refused? Why? @ -None Did you discuss the management of the patient with other professionals (professionals i.e. , PA, TUNNEL MUCKER, lab, RT, psych nurse, oncology social work, shipping clerk/admin, teacher, president and chief commercial officer, correctional casework specialist)? Give summary @ -No Was smoking cessation discussed for >3mins.? @ -No Was critical care preformed (if so, how long)? @ -No Were there social determinants of health that impacted care today? How? (Homelessness, low income, unemployed, alcoholism, drug addiction, transportation, low edu. Level, literacy, decrease access to med. care, care home, rehab)? @ -No Was there de-escalation of care discussed even if they declined (Discuss DNR or withdrawal of care, Hospice)? DNR status @ -No What co-morbidities impacted this encounter? (DM, HTN, Smoking, COPD, CAD, Cancer, CVA, ARF, Chemo, Hep., AIDS, mental health diagnosis, sleep apnea, morbid obesity)? @ -None Was patient admitted / discharged? Hospital course, mention meds given and route, prescriptions, significant lab abnormalities, going to OR and other pertinent info. @ -Patient is a 27-year-old female presenting with chief complaint of upper for quadrant pain and back pain that started today. On physical examination abdomen is soft, nontender, nondistended. No CVA tenderness. There doesn't appear to be some paraspinal muscle tenderness. Patient denies any injury or trauma. Lab work is essentially unremarkable. Urine shows no signs of bleeding or infectious process. HCG is negative. Patient was given Toradol lidocaine patch. On reassessment patient reports improvement in her symptoms. Patient was educated on supportive management at home educated on alarms symptoms that prompt reevaluation. Follow-up with PCP. Report back to ER with any new or worsening symptoms. Discussed return parameters and answered all questions. Patient conveyed verbal understanding and agreed to the plan. I discussed this case in detail with my attending Dr. Dominick Undiagnosed new problem with uncertain prognosis? @ -No Drug Therapy requiring intensive monitoring for toxicity (Heparin, Nitro, Insulin, Cardizem)? @ -No Were any procedures done? @ -No Diagnosis/symptom? @ -Back pain Acute, or Chronic, or Acute on Chronic? @ -acute Uncomplicated (without systemic symptoms) or Complicated (systemic symptoms)? @ -Uncomplicated Side effects of treatment? @ -No Exacerbation, Progression, or Severe Exacerbation? @ -No Poses a threat to life or bodily function? How? (Chest pain, [place], [place], pneumonia, PE, COPD, DKA, ARF, appy, cholecystitis, CVA, Diverticulitis, Homicidal, Suicidal, threat to staff... and all critical care pts) @ -No - Lab Data Result diagrams: 09/13/22 18:43 09/13/22 18:43 Lab Results 09/13/22 09/13/22 09/13/22 Range/Units 18:43 18:43 18:43 WBC 10.6 (3.8-10.6) k/uL RBC 4.58 (3.80-5.40) m/uL Hgb 11.4 (11.4-16.0) gm/dL Hct 35.1 (34.0-46.0) % MCV 76.7 L (80.0-100.0) fL MCH 24.9 L (25.0-35.0) pg MCHC 32.5 (31.0-37.0) g/dL RDW 15.5 (11.5-15.5) % Plt Count 308 (150-450) k/uL MPV 7.2 Neutrophils % 69 % Lymphocytes % 22 % Monocytes % 5 % Eosinophils % 2 % Basophils % 1 % Neutrophils # 7.3 (1.3-7.7) k/uL Lymphocytes # 2.3 (1.0-4.8) k/uL Monocytes # 0.5 (0-1.0) k/uL Eosinophils # 0.2 (0-0.7) k/uL Basophils # 0.1 (0-0.2) k/uL Microcytosis Slight Sodium (137-145) mmol/L Potassium (3.5-5.1) mmol/L Chloride (98-107) mmol/L Carbon Dioxide (22-30) mmol/L Anion Gap mmol/L BUN (7-17) mg/dL Creatinine (0.52-1.04) mg/dL Est GFR (CKD-EPI)AfAm (>60 ml/min/1.73 sqM) Est GFR (CKD-EPI)NonAf (>60 ml/min/1.73 sqM) Glucose (74-99) mg/dL Plasma Lactic Acid Jagjit (0.7-2.0) mmol/L Calcium (8.4-10.2) mg/dL Total Bilirubin (0.2-1.3) mg/dL AST (14-36) U/L ALT (4-34) U/L Alkaline Phosphatase (38-126) U/L Total Protein (6.3-8.2) g/dL Albumin (3.5-5.0) g/dL Amylase (30-110) U/L Lipase (23-300) U/L Urine Color Light Yellow Urine Appearance Clear (Clear) Urine pH 6.0 (5.0-8.0) Ur Specific [place] 1.014 (1.001-1.035) Urine Protein Negative (Negative) Urine Glucose (UA) Negative (Negative) Urine Ketones Trace H (Negative) Urine Blood Trace H (Negative) Urine Nitrite Negative (Negative) Urine Bilirubin Negative (Negative) Urine Urobilinogen <2.0 (<2.0) mg/dL Ur Leukocyte Esterase Negative (Negative) Urine RBC 1 (0-5) /hpf Urine WBC 2 (0-5) /hpf Ur Squamous Epith Cells 2 (0-4) /hpf Urine Bacteria Many H (None) /hpf Urine Mucus Moderate H (None) /hpf Urine HCG, Qual Not Detected (Not Detectd) 09/13/22 09/13/22 Range/Units 18:43 18:43 WBC (3.8-10.6) k/uL RBC (3.80-5.40) m/uL Hgb (11.4-16.0) gm/dL Hct (34.0-46.0) % MCV (80.0-100.0) fL MCH (25.0-35.0) pg MCHC (31.0-37.0) g/dL RDW (11.5-15.5) % Plt Count (150-450) k/uL MPV Neutrophils % % Lymphocytes % % Monocytes % % Eosinophils % % Basophils % % Neutrophils # (1.3-7.7) k/uL Lymphocytes # (1.0-4.8) k/uL Monocytes # (0-1.0) k/uL Eosinophils # (0-0.7) k/uL Basophils # (0-0.2) k/uL Microcytosis Sodium 139 (137-145) mmol/L Potassium 3.6 (3.5-5.1) mmol/L Chloride 104 (98-107) mmol/L Carbon Dioxide 26 (22-30) mmol/L Anion Gap 9 mmol/L BUN 10 (7-17) mg/dL Creatinine 0.58 (0.52-1.04) mg/dL Est GFR (CKD-EPI)AfAm >90 (>60 ml/min/1.73 sqM) Est GFR (CKD-EPI)NonAf >90 (>60 ml/min/1.73 sqM) Glucose 97 (74-99) mg/dL Plasma Lactic Acid Jagjit 0.7 (0.7-2.0) mmol/L Calcium 8.7 (8.4-10.2) mg/dL Total Bilirubin 0.3 (0.2-1.3) mg/dL AST 16 (14-36) U/L ALT 17 (4-34) U/L Alkaline Phosphatase 124 (38-126) U/L Total Protein 6.9 (6.3-8.2) g/dL Albumin 3.9 (3.5-5.0) g/dL Amylase 32 (30-110) U/L Lipase 61 (23-300) U/L Urine Color Urine Appearance (Clear) Urine pH (5.0-8.0) Ur Specific [place] (1.001-1.035) Urine Protein (Negative) Urine Glucose (UA) (Negative) Urine Ketones (Negative) Urine Blood (Negative) Urine Nitrite (Negative) Urine Bilirubin (Negative) Urine Urobilinogen (<2.0) mg/dL Ur Leukocyte Esterase (Negative) Urine RBC (0-5) /hpf Urine WBC (0-5) /hpf Ur Squamous Epith Cells (0-4) /hpf Urine Bacteria (None) /hpf Urine Mucus (None) /hpf Urine HCG, Qual (Not Detectd) Disposition Clinical Impression: Musculoskeletal back pain, Abdominal pain Disposition: HOME SELF-CARE Condition: Good Instructions (If sedation given, give patient instructions): Abdominal Pain (ED), Back Pain (ED) Additional Instructions: Follow-up with PCP. Report back to ER with any new or worsening symptoms. Take Motrin and Tylenol as needed for pain control. Is patient prescribed a controlled substance at d/c from ED?: No Referrals: Ryder Martell DO [Primary Care Provider] - 1-2 days Time of Disposition: 20:04
== END 2022-09-13 20:39 | disposition home or self-care (01) ==
LOC: EC 18:14
DX: M54.9 Dorsalgia, unspecified (principal); R10.12 Left upper quadrant pain; Z87.891 Personal history of nicotine dependence
CPT/HCPCS: 99284 ×2; 96374 ×2; 96361 ×2; 36415; 80053; 82150; 83605; 83690; 85025; 81001; 81025; J1885

== ENCOUNTER 2024-05-07 05:37 | Emergency (ER) | payer BC, OTHER ==
[2024-05-07 05:41] VITALS: TEMP 97.3
[2024-05-07 06:41] LABS: Anisocytosis Slight; Basophils # (A) 0.1 k/uL (0-0.2); Basophils % (A) 1 %; Eosinophils # (A) 0.2 k/uL (0-0.7); Eosinophils % (A) 2 %; HCT 34.7 % (34.0-46.0); HGB 11.1 gm/dL (11.4-16.0); Hypochromasia Slight; Lymphocytes # (A) 3.4 k/uL (1.0-4.8); Lymphocytes % (A) 32 %; MCH 23.8 pg (25.0-35.0); MCV 74.3 fL (80.0-100.0); Mean Platelet Volume 7.2; Microcytosis Slight; Monocytes # (A) 0.4 k/uL (0-1.0); Monocytes % (A) 4 %; Neutrophils # (A) 6.4 k/uL (1.3-7.7); Neutrophils % (A) 60 %; Platelet Count 280 k/uL (150-450); RBC 4.68 m/uL (3.80-5.40); RDW 16.3 % (11.5-15.5); WBC 10.6 k/uL (3.8-10.6)
[2024-05-07 06:45] LABS: HCG,Qualitative Serum Not Detected
[2024-05-07 06:53] LABS: ALT 19 U/L (4-34); AST 18 U/L (14-36); African American GFR (CKD) >90 (>60 ml/min/1.73 sqM); Alkaline Phosphatase 94 U/L (38-126); Anion Gap 7 mmol/L; Blood Urea Nitrogen 14 mg/dL (7-17); Calcium 9.4 mg/dL (8.4-10.2); Carbon Dioxide 25 mmol/L (22-30); Chloride 108 mmol/L (98-107); Glucose 105 mg/dL (74-99); Non-African American GFR(CKD) >90 (>60 ml/min/1.73 sqM); Sodium 140 mmol/L (137-145); Total Bilirubin 0.3 mg/dL (0.2-1.3); Total Protein 6.6 g/dL (6.3-8.2)
[2024-05-07 06:55] LABS: INR 0.9 (<1.2); Partial Thromboplastin Time 25.2 sec (22.0-30.0); Prothrombin Time 10.2 sec (10.0-12.5)
--- NOTE | 2024-05-07 07:03 | ED ---
GI Bleed HPI - General Chief complaint: GI Bleed Stated complaint: Blood in stool Time Seen by Provider: 05/07/24 05:43 Source: patient, RN notes reviewed Mode of arrival: ambulatory Limitations: no limitations - History of Present Illness Initial comments: This is a 29-year-old female who presents to the emergency department for rectal bleeding. Patient states that over the last 2 days she has had generalized abdominal pain and cramping. This morning she had the urge to have a bowel movement. She went to the restroom and noticed bright red blood mixed in with her stool. She has not had a bowel movement since. Denies any history of rectal bleeding. Denies any history of hemorrhoids. She does have some generalized lower abdominal cramping as well as burning near the rectum. Denies any nausea or vomiting. - Related Data Home Medications Medication Instructions Recorded Confirmed Pnv No.95/Ferrous Fum/Folic AC 1 tab PO DAILY 09/30/18 06/16/22 [ Multivitamin Tablet] Ferrous Sulfate [Iron] 325 mg PO DAILY 04/25/22 06/16/22 Previous Rx's Medication Instructions Recorded Acetaminophen Tab [Tylenol] 1,000 mg PO Q6H tab 06/20/22 Ibuprofen [Motrin] 600 mg PO Q6H #60 tab 06/20/22 Allergies Allergy/AdvReac Type Severity Reaction Status Date / Time No Known Allergies Allergy Verified 05/07/24 05:42 Review of Systems ROS Statement: Those systems with pertinent positive or pertinent negative responses have been documented in the HPI. ROS Other: All systems not noted in ROS Statement are negative. Past Medical History Past Medical History: No Reported History Additional Past Medical History / Comment(s): post pardum 06/17/22 History of Any Multi-Drug Resistant Organisms: None Reported Past Surgical History: Section Additional Past Surgical History / Comment(s): Exploratory laparotomy R. partial salpingectomy due to ectopic Past Anesthesia/Blood Transfusion Reactions: No Reported Reaction Past Psychological History: No Psychological Hx Reported Smoking Status: Former smoker Past Alcohol Use History: None Reported Past Drug Use History: None Reported - Past Family History Mother Family Medical History: Cancer Additional Family Medical History / Comment(s): nonhodgkins lymphomas Father Family Medical History: Asthma, Hypertension General Exam Limitations: no limitations General appearance: alert, in no apparent distress Head exam: Present: atraumatic, normocephalic, normal inspection Respiratory exam: Present: normal lung sounds bilaterally. Absent: respiratory distress, wheezes, rales, rhonchi, stridor Cardiovascular Exam: Present: regular rate, normal rhythm, normal heart sounds. Absent: systolic murmur, diastolic murmur, rubs, gallop, clicks GI/Abdominal exam: Present: soft, normal bowel sounds. Absent: distended, tenderness, guarding, rebound, rigid Neurological exam: Present: alert, oriented X3, CN II-XII intact Psychiatric exam: Present: normal affect, normal mood Skin exam: Present: warm, dry, intact, normal color. Absent: rash Course Vital Signs 05/07/24 05:38 Temperature 97.3 F L Pulse Rate 62 Respiratory 18 Rate Blood Pressure 120/79 O2 Sat by Pulse 97 Oximetry Medical Decision Making - Medical Decision Making This is a 29-year-old female who presents to the emergency department for rectal bleeding. Was pt. sent in by a medical professional or institution? @ -No Did you speak to anyone other than the patient for history? @ -No Did you review nursing and triage notes? @ -Yes, and I agree, it is accurate with regards to the patient's symptoms. Were old charts reviewed? @ -No Differential Diagnosis? @ -Differential GI Bleed: Esophageal varices, aortoenteric fistula, [place], gastritis, peptic ulcer disease, diverticulosis, inflammatory bowel disease, hemorrhoids, fissure, colitis, malignancy, Meckel's diverticulum, this is not meant to be an all- inclusive list. EKG interpreted by me (3pts min.)? @ -Not obtained X-rays interpreted by me (1pt min.)? @ -Not obtained CT interpreted by me (1pt min.)? @ -CT scan of the abdomen and pelvis obtained. My interpretation identifies no dilation of the large or small bowel loops. U/S interpreted by me (1pt. min.)? @ -Not obtained What testing was considered but not performed? (CT, X-rays, U/S, labs)? Why? @ -None What meds were considered but not given? Why? @ -None Did you discuss the management of the patient with other professionals? @ -No Did you reconcile home meds? @ -No Was smoking cessation discussed for >3mins.? @ -No Was critical care preformed (if so, how long)? @ -No Were there social determinants of health that impacted care today? How? (Homelessness, low income, unemployed, alcoholism, drug addiction, transportation, low edu. Level, literacy, decrease access to med. care, alf, rehab)? @ -No Was there de-escalation of care discussed even if they declined? (Discuss DNR or withdrawal of care, Hospice)? @ -No What co-morbidities impacted this encounter? (DM, HTN, Smoking, COPD, CAD, Cancer, CVA, Hep., AIDS, mental health diagnosis, sleep apnea, morbid obesity)? @ -None Was patient admitted / discharged? @ -Discharged. Lab work unremarkable. Hemoglobin stable when compared with prior values. CT scan of the abdomen and pelvis reveals questionable epiploic appendagitis. No other acute process was identified. Findings reviewed with the patient. Advised that the bleeding could be related to hemorrhoids. Discussed [id number] suppositories if symptoms persist. Otherwise advised she follow-up with her PCP for reevaluation. Patient discharged home in stable condition. Case discussed with ED attending Dr. Mari. Return precautions reviewed in depth, the patient is instructed to return to the emergency department with any new, worsening, or concerning symptoms. Patient verbalized understanding. Undiagnosed new problem with uncertain prognosis? @ -None Drug Therapy requiring intensive monitoring for toxicity (Heparin, Nitro, Insulin, Cardizem)? @ -None Were any procedures done? @ -None Diagnosis/symptom? @ -Epiploic appendagitis, rectal bleeding Acute, or Chronic, or Acute on Chronic? @ -Acute Uncomplicated (without systemic symptoms) or Complicated (systemic symptoms)? @ -Uncomplicated Side effects of treatment? @ -None Exacerbation, Progression, or Severe Exacerbation] @ -Not applicable Poses a threat to life or bodily function? @ -No - Lab Data Result diagrams: 05/07/24 06:26 05/07/24 06:26 Lab Results 05/07/24 05/07/24 05/07/24 Range/Units 06:26 06:26 06:26 WBC 10.6 (3.8-10.6) k/uL RBC 4.68 (3.80-5.40) m/uL Hgb 11.1 L (11.4-16.0) gm/dL Hct 34.7 (34.0-46.0) % MCV 74.3 L (80.0-100.0) fL MCH 23.8 L (25.0-35.0) pg MCHC 32.0 (31.0-37.0) g/dL RDW 16.3 H (11.5-15.5) % Plt Count 280 (150-450) k/uL MPV 7.2 Neutrophils % 60 % Lymphocytes % 32 % Monocytes % 4 % Eosinophils % 2 % Basophils % 1 % Neutrophils # 6.4 (1.3-7.7) k/uL Lymphocytes # 3.4 (1.0-4.8) k/uL Monocytes # 0.4 (0-1.0) k/uL Eosinophils # 0.2 (0-0.7) k/uL Basophils # 0.1 (0-0.2) k/uL Hypochromasia Slight Anisocytosis Slight Microcytosis Slight PT 10.2 (10.0-12.5) sec INR 0.9 (<1.2) APTT 25.2 (22.0-30.0) sec Sodium 140 (137-145) mmol/L Potassium 4.0 (3.5-5.1) mmol/L Chloride 108 H (98-107) mmol/L Carbon Dioxide 25 (22-30) mmol/L Anion Gap 7 mmol/L BUN 14 (7-17) mg/dL Creatinine 0.66 (0.52-1.04) mg/dL Est GFR (CKD-EPI)AfAm >90 (>60 ml/min/1.73 sqM) Est GFR (CKD-EPI)NonAf >90 (>60 ml/min/1.73 sqM) Glucose 105 H (74-99) mg/dL Calcium 9.4 (8.4-10.2) mg/dL Total Bilirubin 0.3 (0.2-1.3) mg/dL AST 18 (14-36) U/L ALT 19 (4-34) U/L Alkaline Phosphatase 94 (38-126) U/L Total Protein 6.6 (6.3-8.2) g/dL Albumin 4.0 (3.5-5.0) g/dL HCG, Qual Not Detected - Radiology Data Radiology results: report reviewed, image reviewed Disposition Clinical Impression: Epiploic appendagitis, Rectal bleeding Disposition: HOME SELF-CARE Instructions (If sedation given, give patient instructions): Rectal Bleeding (ED), Epiploic Appendagitis (ED) Additional Instructions: Return to the emergency department with any new, worsening, or concerning symptoms. You can try using [id number] suppositories made for internal hemorrhoids to see if that helps with the bleeding. You can also take Tylenol as needed for any discomfort. Follow up with your primary care provider in 1-2 days. Is patient prescribed a controlled substance at d/c from ED?: No Referrals: Shameka Miller, PAC [Primary Care Provider] - 1-2 days Time of Disposition: 07:25
--- NOTE | 2024-05-07 07:05 | CT ---
EXAMINATION TYPE: CT abdomen pelvis w con DATE OF EXAM: 05/07/2024 HISTORY: abd pain CT DLP: 1213.3mGycm Automated Exposure Control for Dose Reduction was Utilized. CONTRAST: CT scan of the abdomen and pelvis is performed with IV Contrast, patient injected with 100 mL of Isov ue 300. COMPARISON: None. FINDINGS: LUNG BASES: No significant abnormality is appreciated. LIVER/GB: Contracted gallbladder. PANCREAS: No significant abnormality is seen. SPLEEN: No significant abnormality is seen. ADRENALS: No significant abnormality is seen. KIDNEYS: Symmetric cortical medullary uptake and excretion without hydronephrosis thinning bilaterall y. There is 2.4 cm simple cortical cyst in the right kidney delayed coronal image 61 noted. BOWEL: No abnormal small or large bowel dilatation. Low lying cecum into the inferior pelvis is note d. Appendix is within normal limits. Possible small area of epiploic appendagitis at this level noted . UTERUS/ADNEXA: Anteverted uterus. LYMPH NODES: No greater than 1cm abdominal or pelvic lymph nodes are appreciated. OSSEOUS STRUCTURES: No significant abnormality is seen. OTHER: Moderate-sized fat-containing umbilical hernia sagittal image 82. IMPRESSION: Possible epiploic appendagitis from cecum in pelvis, correlate clinically otherwise No si gnificant acute finding is identified. [facility], , 05/07/2024 7:03 AM
[2024-05-07 07:36] VITALS: BP 132/108; PULSE 59; RESP 17
== END 2024-05-07 07:36 | disposition home or self-care (01) ==
LOC: EC 05:37
DX: K63.89 Other specified diseases of intestine (principal); K92.1 Melena; Z87.891 Personal history of nicotine dependence
CPT/HCPCS: 36415 ×2; 80053; 85025; 85610; 85730; 84703; 74177; 99285; Q9967